=== PATIENT | male | born 1945 | race Caucasian/White ===

== ENCOUNTER → 2023-04-27 10:13 | Outpatient (REF) | payer MEDICARE, OTHER, SELFPAY ==
[2023-04-27 11:06] LABS: % Basophils 0.5 % (0-2); % Eosinophils 0.5 % (0-6); % Immature Granulocytes 0.3 % (0-0.5); % Monocytes 7.9 % (1.7-9.3); % Neutrophils 66.8 % (42.2-75.2); Absolute Lymphocytes 1.9 10^3/uL (1.2-3.4); Absolute Monocytes 0.6 10^3/uL (0.1-0.6); Absolute Neutrophils 5.3 10^3/uL (1.4-6.5); Hematocrit 43.7 % (39.0-52.0); Hemoglobin 15.1 g/dL (13.0-18.0); Mean Corp Hgb Conc. 34.6 g/dL (33.0-37.0); Mean Corpuscular Hgb 30.6 pg (27.0-31.0); Mean Corpuscular Volume 88.6 fL (80.0-94.0); Mean Platelet Volume 10.8 fL (7.4-10.4); Nucleated Red Blood Cells % 0 % (-); Platelet Count 210 10^3/uL (130-400); Red Blood Cell Count 4.93 10^6/uL (4.70-6.10); Red Cell Dist. Width 11.9 % (11.5-14.5); White Blood Cell Count 7.9 10^3/uL (4.8-10.8)
[2023-04-27 11:30] LABS: ALT (SGPT) 24 U/L (0-50); AST (SGOT) 27 U/L (17-59); Albumin 3.9 g/dl (3.5-5.0); Alkaline Phosphatase 57 U/L (38-126); Blood Urea Nitrogen 31 mg/dl (9-20); Calcium 9.6 mg/dl (8.4-10.2); Carbon Dioxide 31 mmol/L (22-30); Chloride 99 mmol/L (98-107); Glucose 88 mg/dl (70-99); Potassium 4.7 mmol/L (3.5-5.1); Sodium 139 mmol/L (135-145); Total Bilirubin 0.8 mg/dl (0.2-1.3); Total Protein 6.5 g/dl (6.3-8.2); eGFR 47.36
[2023-04-27 11:57] LABS: TSH Reflex To Free T4 0.98 uIU/ml (0.47-4.68)
== END ==
LOC: REG 10:13
PROVIDERS: ATTENDING PHYSICIAN Internal Medicine Hematology & Oncology; FAMILY PHYSICIAN Family Medicine
DX: C64.2 Malignant neoplasm of left kidney, except renal pelvis (principal); C61 Malignant neoplasm of prostate; Q85.00 Neurofibromatosis, unspecified; I10 Essential (primary) hypertension
CPT/HCPCS: 36415; 80053; 84443; 85025; 87324; 87449

== ENCOUNTER → 2023-04-28 15:23 | Outpatient (REF) | payer MEDICARE, OTHER, SELFPAY ==
[2023-04-28 16:27] LABS: PSA, Total - Diagnostic < 0.06 ng/ml (0.0-4.0)
== END ==
LOC: OIDL 15:23
PROVIDERS: ATTENDING PHYSICIAN Internal Medicine Hematology & Oncology
DX: C64.2 Malignant neoplasm of left kidney, except renal pelvis (principal); C61 Malignant neoplasm of prostate
CPT/HCPCS: 84153

== ENCOUNTER → 2023-05-18 10:31 | Outpatient (REF) | payer MEDICARE, OTHER, SELFPAY ==
[2023-05-18 11:12] LABS: % Basophils 0.8 % (0-2); % Eosinophils 1.3 % (0-6); % Immature Granulocytes 0.3 % (0-0.5); % Lymphocytes 27.2 % (20.5-51.1); % Monocytes 7.7 % (1.7-9.3); % Neutrophils 62.7 % (42.2-75.2); Absolute Basophils 0.1 10^3/uL (0-0.2); Absolute Eosinophils 0.1 10^3/uL (0-0.7); Absolute Lymphocytes 2.1 10^3/uL (1.2-3.4); Absolute Monocytes 0.6 10^3/uL (0.1-0.6); Absolute Neutrophils 4.8 10^3/uL (1.4-6.5); Hematocrit 43.4 % (39.0-52.0); Mean Corp Hgb Conc. 34.6 g/dL (33.0-37.0); Mean Corpuscular Volume 89.7 fL (80.0-94.0); Mean Platelet Volume 10.5 fL (7.4-10.4); Nucleated Red Blood Cells % 0 % (-); Platelet Count 225 10^3/uL (130-400); Red Blood Cell Count 4.84 10^6/uL (4.70-6.10); Red Cell Dist. Width 12.4 % (11.5-14.5); White Blood Cell Count 7.7 10^3/uL (4.8-10.8)
[2023-05-18 12:09] LABS: ALT (SGPT) 37 U/L (0-50); AST (SGOT) 32 U/L (17-59); Albumin 4.3 g/dl (3.5-5.0); Alkaline Phosphatase 63 U/L (38-126); Blood Urea Nitrogen 28 mg/dl (9-20); Calcium 9.3 mg/dl (8.4-10.2); Carbon Dioxide 28 mmol/L (22-30); Chloride 103 mmol/L (98-107); Glucose 101 mg/dl (70-99); Potassium 4.3 mmol/L (3.5-5.1); Sodium 138 mmol/L (135-145); Total Protein 7.2 g/dl (6.3-8.2); eGFR 47.06
[2023-05-18 12:29] LABS: TSH Reflex To Free T4 1.26 uIU/ml (0.47-4.68)
[2023-05-18 12:48] LABS: Vitamin B12 613 pg/ml (239-931)
== END ==
LOC: REG 10:31
PROVIDERS: Psychiatry & Neurology Behavioral Neurology & Neuropsychiatry; ATTENDING PHYSICIAN Internal Medicine Hematology & Oncology; FAMILY PHYSICIAN Family Medicine
DX: C64.2 Malignant neoplasm of left kidney, except renal pelvis (principal); C61 Malignant neoplasm of prostate; Q85.00 Neurofibromatosis, unspecified; G30.9 Alzheimer's disease, unspecified; I48.0 Paroxysmal atrial fibrillation
CPT/HCPCS: 36415; 80053; 82607; 84443; 85025

== ENCOUNTER → 2023-06-03 06:34 | Outpatient (REF) | payer MEDICARE, OTHER, SELFPAY | LOC: MRI 3T 06:34 | PROVIDERS: ATTENDING PHYSICIAN Psychiatry & Neurology Behavioral Neurology & Neuropsychiatry; FAMILY PHYSICIAN Family Medicine | DX: G30.9 Alzheimer's disease, unspecified (principal) | CPT/HCPCS: 70551 ==

== ENCOUNTER → 2023-06-08 09:38 | Outpatient (REF) | payer MEDICARE, OTHER, SELFPAY ==
[2023-06-08 11:13] LABS: % Basophils 0.5 % (0-2); % Eosinophils 1.5 % (0-6); % Immature Granulocytes 0.4 % (0-0.5); % Lymphocytes 26.5 % (20.5-51.1); % Monocytes 8.4 % (1.7-9.3); % Neutrophils 62.7 % (42.2-75.2); Absolute Eosinophils 0.1 10^3/uL (0-0.7); Absolute Monocytes 0.6 10^3/uL (0.1-0.6); Absolute Neutrophils 4.6 10^3/uL (1.4-6.5); Hematocrit 43.1 % (39.0-52.0); Hemoglobin 14.9 g/dL (13.0-18.0); Mean Corp Hgb Conc. 34.6 g/dL (33.0-37.0); Mean Corpuscular Volume 89.8 fL (80.0-94.0); Mean Platelet Volume 10.6 fL (7.4-10.4); Nucleated Red Blood Cells % 0 % (-); Platelet Count 213 10^3/uL (130-400); Red Cell Dist. Width 12.7 % (11.5-14.5); White Blood Cell Count 7.4 10^3/uL (4.8-10.8)
[2023-06-08 11:31] LABS: ALT (SGPT) 29 U/L (0-50); AST (SGOT) 27 U/L (17-59); Albumin 4.2 g/dl (3.5-5.0); Alkaline Phosphatase 66 U/L (38-126); Blood Urea Nitrogen 29 mg/dl (9-20); Calcium 9.6 mg/dl (8.4-10.2); Carbon Dioxide 29 mmol/L (22-30); Chloride 102 mmol/L (98-107); Glucose 84 mg/dl (70-99); Potassium 4.3 mmol/L (3.5-5.1); Sodium 138 mmol/L (135-145); Total Bilirubin 0.8 mg/dl (0.2-1.3); Total Protein 6.9 g/dl (6.3-8.2); eGFR 47.06
[2023-06-08 12:01] LABS: TSH Reflex To Free T4 1.33 uIU/ml (0.47-4.68)
== END ==
LOC: REG 09:38
PROVIDERS: ATTENDING PHYSICIAN Internal Medicine Hematology & Oncology; FAMILY PHYSICIAN Family Medicine
DX: C64.2 Malignant neoplasm of left kidney, except renal pelvis (principal); C61 Malignant neoplasm of prostate; Q85.00 Neurofibromatosis, unspecified; I10 Essential (primary) hypertension
CPT/HCPCS: 36415; 80053; 84443; 85025

== ENCOUNTER → 2023-06-29 09:40 | Outpatient (REF) | payer MEDICARE, OTHER, SELFPAY ==
[2023-06-29 10:21] LABS: % Basophils 0.6 % (0-2); % Immature Granulocytes 0.3 % (0-0.5); % Lymphocytes 27.4 % (20.5-51.1); % Monocytes 8.9 % (1.7-9.3); % Neutrophils 61.8 % (42.2-75.2); Absolute Eosinophils 0.1 10^3/uL (0-0.7); Absolute Lymphocytes 1.9 10^3/uL (1.2-3.4); Absolute Monocytes 0.6 10^3/uL (0.1-0.6); Absolute Neutrophils 4.3 10^3/uL (1.4-6.5); Hematocrit 40.6 % (39.0-52.0); Hemoglobin 13.5 g/dL (13.0-18.0); Mean Corp Hgb Conc. 33.3 g/dL (33.0-37.0); Mean Corpuscular Hgb 30.8 pg (27.0-31.0); Mean Corpuscular Volume 92.7 fL (80.0-94.0); Mean Platelet Volume 10.3 fL (7.4-10.4); Nucleated Red Blood Cells % 0 % (-); Platelet Count 199 10^3/uL (130-400); Red Blood Cell Count 4.38 10^6/uL (4.70-6.10); Red Cell Dist. Width 12.7 % (11.5-14.5)
[2023-06-29 14:15] LABS: ALT (SGPT) 31 U/L (0-50); AST (SGOT) 27 U/L (17-59); Alkaline Phosphatase 67 U/L (38-126); Blood Urea Nitrogen 30 mg/dl (9-20); Carbon Dioxide 27 mmol/L (22-30); Chloride 104 mmol/L (98-107); Glucose 86 mg/dl (70-99); Potassium 4.6 mmol/L (3.5-5.1); Sodium 137 mmol/L (135-145); Total Bilirubin 0.5 mg/dl (0.2-1.3); Total Protein 6.8 g/dl (6.3-8.2); eGFR 51.13
[2023-06-29 14:45] LABS: TSH Reflex To Free T4 1.21 uIU/ml (0.47-4.68)
== END ==
LOC: REG 09:40
PROVIDERS: ATTENDING PHYSICIAN Internal Medicine Hematology & Oncology; FAMILY PHYSICIAN Family Medicine
DX: C64.2 Malignant neoplasm of left kidney, except renal pelvis (principal); C61 Malignant neoplasm of prostate; Q85.00 Neurofibromatosis, unspecified; I10 Essential (primary) hypertension
CPT/HCPCS: 36415; 80053; 84443; 85025

== ENCOUNTER 2023-06-30 16:12 | Outpatient (RCR) | payer MEDICARE, OTHER, SELFPAY ==
[2023-06-30 15:23] LABS: PSA, Total - Diagnostic < 0.06 ng/ml (0.0-4.0)
== END 2023-07-07 23:59 | disposition home or self-care (01) ==
LOC: OID 16:12
PROVIDERS: ATTENDING PHYSICIAN Internal Medicine Hematology & Oncology
DX: C64.2 Malignant neoplasm of left kidney, except renal pelvis (principal); C61 Malignant neoplasm of prostate; Z79.01 Long term (current) use of anticoagulants
CPT/HCPCS: 84153

== ENCOUNTER 2023-07-14 07:11 | Day surgery (SDC) | payer MEDICARE, OTHER, SELFPAY ==
--- NOTE | 2023-07-14 11:21 | WATCHMAN ---
Watchman
Wathcman Procedure
Referred by:: Ariane
Date of Referral:: 07/07/23
[id number] Score
Age in Years (65=0, 65-74=1, >/=75=2): > or = 75
Sex (Female=+1): Male
Congestive Heart Failure History (Yes=+1): No
Hypertension History (Yes=+1): Yes
Stroke/TIA/Thromboembolism History (Yes=+2): Yes
Vascular Disease History (Yes=+1): No
Diabetes Mellitus (Yes=+1): No
Score: 5
Anticoagulation Recommendations: Recommend anticoagulation (as validated in nonvalvular fib)
HASBLED Score
Hypertenstion (uncontrolled >160mmHG systolic): Yes
Renal disease (dialysis, transplant, Cr >2.26mg/dL or >200umol/L): No
Liver disease (cirrhosis or bilirubin >2x normal w/ AST/ALT/AP >3x normal: No
Stroke history: Yes
Prior major bleeding or predisposition to bleeding: No
Labile INR(unsable/high INRs,time in therapeutic range <60%): No
Age >65: Yes
Medication usage predisposing to bleeding(ASA, NSAIDS): Yes
Alcohol use (>/= 8 drinks/week): No
Score: 4
Risk: Alternatives to anticoagulation should be considered: Patient is at high risk for major bleeding
Physician Visits
Mill Tender Warm Up:: Ariane
Date of Visit:: 07/07/23
Primary Brim Stitcher:: Catracho
PCP:: Deejay Rodriguez
Plan
Plan:: 07/07/2023: Consult receive from Dr. Thakkar. BART ordered to evaluate appendage.
07/14/2023: BART performed by Dr. Earl.
== END 2023-07-14 09:48 | disposition home or self-care (01) ==
LOC: CATH 07:11
PROVIDERS: ATTENDING PHYSICIAN Nuclear Medicine Nuclear Cardiology; FAMILY PHYSICIAN Family Medicine
DX: I48.0 Paroxysmal atrial fibrillation (principal); I70.0 Atherosclerosis of aorta; I10 Essential (primary) hypertension; Z79.01 Long term (current) use of anticoagulants; I08.1 Rheumatic disorders of both mitral and tricuspid valves
CPT/HCPCS: 93312; 93320; 93325

== ENCOUNTER → 2023-07-20 10:36 | Outpatient (REF) | payer MEDICARE, OTHER, SELFPAY ==
[2023-07-20 11:35] LABS: % Basophils 0.5 % (0-2); % Eosinophils 0.6 % (0-6); % Immature Granulocytes 0.3 % (0-0.5); % Lymphocytes 26.8 % (20.5-51.1); % Monocytes 8.1 % (1.7-9.3); % Neutrophils 63.7 % (42.2-75.2); Absolute Lymphocytes 1.7 10^3/uL (1.2-3.4); Absolute Monocytes 0.5 10^3/uL (0.1-0.6); Absolute Neutrophils 4.1 10^3/uL (1.4-6.5); Hematocrit 40.8 % (39.0-52.0); Hemoglobin 13.9 g/dL (13.0-18.0); Mean Corp Hgb Conc. 34.1 g/dL (33.0-37.0); Mean Corpuscular Hgb 31.1 pg (27.0-31.0); Mean Corpuscular Volume 91.3 fL (80.0-94.0); Mean Platelet Volume 10.2 fL (7.4-10.4); Nucleated Red Blood Cells % 0 % (-); Platelet Count 218 10^3/uL (130-400); Red Blood Cell Count 4.47 10^6/uL (4.70-6.10); Red Cell Dist. Width 11.9 % (11.5-14.5); White Blood Cell Count 6.4 10^3/uL (4.8-10.8)
[2023-07-20 13:00] LABS: ALT (SGPT) 25 U/L (0-50); AST (SGOT) 26 U/L (17-59); Albumin 3.7 g/dl (3.5-5.0); Alkaline Phosphatase 72 U/L (38-126); Blood Urea Nitrogen 24 mg/dl (9-20); Calcium 9.5 mg/dl (8.4-10.2); Carbon Dioxide 27 mmol/L (22-30); Chloride 102 mmol/L (98-107); Glucose 119 mg/dl (70-99); Potassium 4.3 mmol/L (3.5-5.1); Sodium 139 mmol/L (135-145); Total Bilirubin 0.5 mg/dl (0.2-1.3); Total Protein 6.5 g/dl (6.3-8.2); eGFR 55.88
[2023-07-20 13:25] LABS: TSH 1.16 uIU/ml (0.47-4.68)
== END ==
LOC: REG 10:36
PROVIDERS: ATTENDING PHYSICIAN Internal Medicine Hematology & Oncology; FAMILY PHYSICIAN Family Medicine
DX: C64.2 Malignant neoplasm of left kidney, except renal pelvis (principal); C61 Malignant neoplasm of prostate; Q85.00 Neurofibromatosis, unspecified; I10 Essential (primary) hypertension
CPT/HCPCS: 36415; 80053; 84443; 85025

== ENCOUNTER 2023-08-11 07:56 | Inpatient (IN) | payer MEDICARE, OTHER, SELFPAY ==
[2023-08-04 08:20] VITALS: BMI 20.9
[2023-08-04 08:39] LABS: % Basophils 0.6 % (0-2); % Eosinophils 1.5 % (0-6); % Immature Granulocytes 0.3 % (0-0.5); % Lymphocytes 35.8 % (20.5-51.1); % Monocytes 7.4 % (1.7-9.3); % Neutrophils 54.4 % (42.2-75.2); Absolute Basophils 0.1 10^3/uL (0-0.2); Absolute Eosinophils 0.1 10^3/uL (0-0.7); Absolute Lymphocytes 2.8 10^3/uL (1.2-3.4); Absolute Monocytes 0.6 10^3/uL (0.1-0.6); Absolute Neutrophils 4.3 10^3/uL (1.4-6.5); Hematocrit 39.3 % (39.0-52.0); Hemoglobin 13.1 g/dL (13.0-18.0); Mean Corp Hgb Conc. 33.3 g/dL (33.0-37.0); Mean Corpuscular Hgb 30.8 pg (27.0-31.0); Mean Corpuscular Volume 92.3 fL (80.0-94.0); Mean Platelet Volume 10.1 fL (7.4-10.4); Nucleated Red Blood Cells % 0 % (-); Platelet Count 205 10^3/uL (130-400); Red Blood Cell Count 4.26 10^6/uL (4.70-6.10); Red Cell Dist. Width 12.2 % (11.5-14.5); White Blood Cell Count 7.9 10^3/uL (4.8-10.8)
[2023-08-04 08:49] LABS: INR 1.52; PT 18.1 Sec (11.4-14.6)
[2023-08-04 09:36] LABS: ALT (SGPT) 30 U/L (0-50); AST (SGOT) 29 U/L (17-59); Albumin 3.8 g/dl (3.5-5.0); Alkaline Phosphatase 78 U/L (38-126); Blood Urea Nitrogen 25 mg/dl (9-20); Calcium 9.1 mg/dl (8.4-10.2); Carbon Dioxide 24 mmol/L (22-30); Chloride 106 mmol/L (98-107); Estimated Creatinine Clearance 47 ml/min; Glucose 108 mg/dl (70-99); Potassium 3.8 mmol/L (3.5-5.1); Sodium 139 mmol/L (135-145); Total Bilirubin 0.7 mg/dl (0.2-1.3); Total Protein 6.5 g/dl (6.3-8.2); eGFR > 60.00
[2023-08-11] VITALS (9 sets, daily range): BP systolic 108–129; BP diastolic 67–94; BMI 20.2
--- NOTE | 2023-08-11 10:49 | WATCHMAN.MD ---
Watchman Implant
-
ELECTROPHYSIOLOGY/INTERVENTIONAL PROCEDURE REPORT
Date of Procedure: August 11, 2023
Referring: Dr. Valente Earl
Assisting Physician:Dr. Phylicia Alva
PROCEDURES:
1. Left atrial appendage occlusion device using 27 mm WATCHMAN FLX device
2. Intracardiac echocardiography
3. Ultrasound-guided right common femoral venous access
INDICATION: Known paroxysmal atrial fibrillation with indication for long-term anticoagulation to decrease stroke risk. Contraindication to long-term oral anticoagulant in the setting of new Alzheimer's medication initiation.
ACCESS: Right common femoral vein, 16Fr sheath and 9Fr. sheaths, under US guidance using micropunture kit.
HEMODYNAMICS : (mmHg)
RA Pressure : 5
LA Pressure: 8
PROCEDURE REPORT:
After informed consent and patient safety 'Timeout' the patient was intubated and sedated by the anesthesiology service. Under ultrasound guidance, the right femoral vein was accessed by Dr. Phylicia Alva twice for transseptal puncture and
intracardiac ultrasound, respectively. Concomitant transesophageal echocardiogram was performed by Dr. Sp Boudreaux
Baseline intracardiac ultrasound demonstrated no pericardial effusion and baseline BART images revealed a trace pericardial effusion.
After ruling out a left atrial appendage thrombus, the patient was heparinized for an ACT between 350-400 seconds and under BART and intracardiac ultrasound guidance transseptal puncture was performed by Dr. Phylicia Alva using a AcuQcross in a mid
position on the inferior-superior axis and a mid position on the anterior-posterior axis. Right atrial pressure was 5 millimeters mercury and left atrial pressure was 8 millimeters mercury.
Once transseptal puncture was performed over an Amplatz Super Stiff 0.035 wire parked in the left superior pulmonary vein, the watchman access double curve sheath was brought into body of left atrium. A 5 Telugu pigtail catheter was placed into the
left atrial appendage and an appendage gram was performed using intravenous contrast dye demonstrating a chicken wing type anatomy that was suitable likely for a 27 mm WATCHMAN FLX device.
After appropriately prepping the device, Dr. Heidi Thakkar successfully deployed a 27 mm WATCHMAN FLX device. Device showed excellent positioning with no leaks post device deployment. 22 to 29 % compression was noted in the device after deployment.
A 'tug-test' was performed demonstrating stability of the device. Given PASS criteria were met, the device was then released successfully by Dr. Heidi Thakkar.
Post procedure, BART imaging demonstrated no new or worse pericardial effusion. Sheaths and catheters were removed from the left atrium and heparin was reversed using protamine. Catheters removed from the femoral veins with [id number] suture
applied. The patient tolerated the procedure well.
RADIATION SUMMARY: Fluoro Time (min): 6.5, Dose (mGy): 22.7, DAP (Gy.cm2) : 2.7
Closure Device: Figure of 8 suture
CONCLUSIONS
1. Successful deployment of 27 mm WATCHMAN FLX device under BART and ICE guidance.
RECOMMENDATIONS
1. Plan for daily Eliquis 5 mg twice daily along with daily baby aspirin 81 mg for the next 6 weeks.
2. 45-day BART post procedure to assess stability of device and rule out any shira-device leaks. If no issues, plan to discontinue eliquis at that point and start plavix 75mg daily (after 300mg loading dose) along with continued aspirin
3. Figure of 8 suture removal prior to discharge.
Heidi Thakkar MD, [facility], [facility]
[2023-08-11 11:43] LABS: ACT-LR - POC 326 Seconds (116-155)
--- NOTE | 2023-08-11 15:34 | W.DS.TRANS ---
DC Summary - Faculty Research Physician
-
Discharge Instructions:
Discharge Diagnosis/Procedures Afib post Watchman
Diet Low Cholesterol
Driving Restrictions No driving for 24 hours
Others Tests Follow up BART is scheduled at [facility] on 09/24/2023. You will receive a call
with instructions and date for pre-admission
testing.
Instructions:
Stand-Alone Forms: DC Instructions- Cath/EP Lab
Changes to Home Medications: Yes
Discharge Medications:
DC Medications w/original date entered in [employer]
apixaban 5 mg tablet (Eliquis) 5 mg PO BID Blood Clot Prevention/Tx 04/17/22
cholecalciferol (vitamin D3) 50 mcg (2,000 unit) capsule (Vitamin D3) 50 mcg PO DAILY Supplement 04/17/22
metoprolol succinate 50 mg tablet,extended release 24 hr 50 mg PO DAILY Blood Pressure 04/17/22
ascorbic acid (vitamin C) 1,000 mg tablet (Vitamin C) 1 g PO DAILY Supplement 10/06/22
pembrolizumab 25 mg/mL intravenous solution (Keytruda) 200 mg IV Q3W 07/30/23
aspirin 81 mg chewable tablet 81 mg PO DAILY #1 tab 08/11/23
Home Medication Changes
new to asa 81mg
Pending Results: No
--- NOTE | 2023-08-11 15:34 | W.PN.UPDATE ---
Update Note
Progress Note Update
78 yo WM s/p Watchman device implant (same day) He feels good, no cp, sob, demetrius diet, voiding, R fem site c/d/i no HT, EKG Afib. He will continue OAC Eliquis dose tonight at 6pm. He will add ASA 81mg until after f/u BART in 6 weeks. Activity
restrictions reviewed. He is for d/c home after 430p if groin remains stable.
PROCEDURES:
1. Left atrial appendage occlusion device using 27 mm WATCHMAN FLX device
2. Intracardiac echocardiography
3. Ultrasound-guided right common femoral venous access
INDICATION: Known paroxysmal atrial fibrillation with indication for long-term anticoagulation to decrease stroke risk. Contraindication to long-term oral anticoagulant in the setting of new Alzheimer's medication initiation.
--- NOTE | 2023-08-11 16:32 | ITS.CL.PN ---
Neurology Physician Assistant - Procedure Note
Procedure
Procedure Note:
Watchman CORBY occlusion device implantation:
Date of Procedure:
08/11/23
Indications:
Recurrent bleeding with anticoagulation therapy for stroke prevention
Pre-Operative Diagnosis:
Atrial fibrillation with recurrent bleeding
Post-Operative Diagnosis:
Atrial fibrillation with recurrent bleeding
Procedure Performed:
Left atrial appendage occlusion with Watchman implantation (27 mm FLX Watchman left atrial appendage closure device)
Performing Physicians:
BART: Jignesh Boudreaux M.D.
Transseptal rotary dump operator: Phylicia shook M.D
Implanter: Heidi Thakkar M.D.
Anesthesia:
See anesthesia records
Detailed Description of the Procedure:
Written informed consent was obtained from the patient after a full explanation of the risks and benefits of the procedure including the risks of sedation and anesthesia.
The patient was brought to the electrophysiology laboratory in stable condition in fasting state. Continuous electrocardiographic and hemodynamic monitoring was initiated.
The initial rhythm was normal sinus rhythm.
The procedure site was meticulously prepared with surgical scrub and allowed to dry with no pooling. Sterile draping was applied to cover the procedure site. The image intensifier was draped with sterile bag and positioned over the patient. After
infusion of local anesthetic, vascular access was obtained under ultrasound guidance and sheaths were placed over guide wire as detailed below.
Sheath and Catheter Placement:
In the right femoral vein, a 16-Spanish sheath was placed for Watchman placement procedure.
Sheaths:
��������������� 9Fr with ICE
��������������� Watchman delivery sheath with Watchman catheter
Intra cardiac ECHO (ICE):
Using AccuNav ICE catheter, ECHO of the cardiac chambers were done that provided the anatomy and a baseline ECHO study was performed. The left atrial size was enlarged. There was trace tricuspid regurgitation. The aortic valve was grossly normal.
There was normal left ventricular size and function. There was no pericardial effusion.
During the procedure, ICE and BART was used for monitoring of complications, guidance of trans-septal puncture, monitor the catheter position and tracking watchman implantation and level of compression.
No change in the pericardial space noted throughout the procedure.
Trans-septal Puncture:
Heparin was initiated and infused to maintain appropriate ACT.
A J-tipped guidewire was advanced through the 8-Spanish sheath in the right femoral vein into the superior vena cava under fluoroscopic, ICE and BART guidance. The 8Fr was upgraded to 16 Fr sheath. The Watchman sheath was advanced into the superior
vena cava over the guide wire. The ACDynamics Expert� AcQCross Qx trans-septal apparatus was used through the Watchman sheath. The apparatus was withdrawn until it was in contact with the fossa ovalis. The position was adjusted based on fluoroscopy and
ultrasound images from ICE. Under fluoroscopic, hemodynamic and ICE/BART ultrasound guidance, left atrium was cannulated by advancing the needle. The right atrial and left atrial pressure was monitored through the needle. An Amplatz guide wire was
placed and was advanced into the left superior pulmonary vein. Both the sheath and the dilator was advanced into the left atrium. The dilator with the needle was withdrawn. Blood was aspirated from the sheath and arterial blood confirmed. The sheath
was flushed. Saline injection noted into the left atrium on BART. The LA pressure was recorded. The Agilis sheath was removed keeping the wire in place. The Watchman delivery sheath was placed over the Amplatz wire into the LA using a dilator. The
dilator and was removed and the sheath was flushed. The saline injection was noted in the LA on the BART and ICE. A curved pig tail was advanced over the guide wire into the left atrium and the wire was removed.
Left atrial appendage atriography:
The pigtail was advanced into the CORBY and was confirmed on fluoroscopy and BART. The contrast was injected and the CORBY shape was recorded in SÁNCHEZ /Caudal view (20/20 degrees). The size of the CORBY was again checked and confirmed reviewing the BART and
the fluoroscopy along with previously obtained CT scan images.
Watchman Deployment:
The Watchman delivery sheath was advanced into the CORBY over the pigtail till the right marker was at the location of the orifice line marked on the screen. The pigtail was removed and the Watchman delivery system was advanced through the sheath into
the CORBY till it was aligned with the outer sheath marker inside the CORBY. The watchman sheath was clicked with the outer sheath. Once acceptable location achieved, the outer sheath was pulled back keeping the device steady at the CORBY location till a
ball of the device was formed under fluoroscopic guidance. The whole system was advanced further into the CORBY till adequate depth is achieved into the CORBY.� The CORBY occluder was deployed and expanded adequately anchoring to the CORBY. The device was
kept anchored with stable pressure to that location for 10 seconds.
The BART and ICE showed the device is not appropriately compressed. The Watchman was recaptured and deployed deeper into the CORBY. The device was captured and redeployed with excellent results.
The BART image confirmed adequate expansion. The tug test was done that showed the device is anchored well and is not able to come out. The compression was 22% and 18% on the two sides. There was no significant leak noted on the Doppler via BART.
The device was deployed by unscrewing the Watchman device and releasing from the connecting wire. The wire was pulled back into the sheath and the sheath was pulled out of the LA.
Implanted device:
WATCHMAN FLX � 27mm
Procedure End
BART study was done again that showed no epicardial accumulation that was unchanged from earlier. A repeated images showed no change in the pericardial space. No complications noted.
Following the completion of the deployment, catheters were removed. Protamine 40 mg was given at the end of the procedure and ACT was checked repeatedly. The sheath was removed and hemostasis achieved with �Figure of 8� and manual compression after
acceptable ACT is achieved.
Left atrial Pressure:
Mean LA pressure was 8mmHg
Mean RA pressure 5 mmHg
Estimated Blood loss:
5 cc
Specimens Removed:
None.
Implants / Devices:
None
Urine output:
None
Packs / Drains/ Tubes:
None
Instrument / Sponge Count Correct:
Yes
Complications of the Procedure:
None
Condition of Patient at Time of Transfer:
Hemodynamically stable with no neurological or vascular compromise.
Summary:
Successful implantation of the left atrial occlusion device (WATCHMAN FLX � 27mm)
Post procedure Plan for anticoagulation:
Continue Eliquis 5 mg BID and ASA 81 mg QD for 6 weeks.
Based on 6 weeks BART, will plan to switch Eliquis to Plavix and ASA.
In six months, will plan to discontinue Plavix and continue ASA 81 mg indefinitely.
== END 2023-08-11 16:30 | disposition home or self-care (01) | DRG 274 ==
LOC: CATH-IN 07:56
PROVIDERS: Internal Medicine Cardiovascular Disease; ADMITTING PHYSICIAN Internal Medicine Interventional Cardiology; FAMILY PHYSICIAN Family Medicine
PROC: B24BZZ4 Ultrasonography of Heart with Aorta, Transesophageal (ICD-10-PCS; 2023-08-11)
PROC: 02L73DK Occlusion of Left Atrial Appendage with Intraluminal Device, Percutaneous Approach (ICD-10-PCS; 2023-08-11)
PROC: B24BYZZ Ultrasonography of Heart with Aorta using Other Contrast (ICD-10-PCS; 2023-08-11)
DX: I48.19 Other persistent atrial fibrillation (principal); Z00.6 Encounter for examination for normal comparison and control in clinical research program; F02.80 Dementia in other diseases classified elsewhere, unspecified severity, without behavioral disturbance, psychotic disturbance, mood disturbance, and anxiety; G30.9 Alzheimer's disease, unspecified; I10 Essential (primary) hypertension; I77.810 Thoracic aortic ectasia; I49.1 Atrial premature depolarization; K76.89 Other specified diseases of liver; I34.0 Nonrheumatic mitral (valve) insufficiency; Z86.010 Personal history of colon polyps; Z87.19 Personal history of other diseases of the digestive system; Z86.73 Personal history of transient ischemic attack (TIA), and cerebral infarction without residual deficits; Q85.00 Neurofibromatosis, unspecified; Z85.528 Personal history of other malignant neoplasm of kidney; Z90.5 Acquired absence of kidney; Z85.46 Personal history of malignant neoplasm of prostate; Z90.79 Acquired absence of other genital organ(s); Z85.828 Personal history of other malignant neoplasm of skin; Z22.322 Carrier or suspected carrier of Methicillin resistant Staphylococcus aureus; Z79.01 Long term (current) use of anticoagulants
CPT/HCPCS: 33340; 36415; 76937; 80053; 85025; 85347; 85610; 86850; 86900; 86901; 87070; 87147; 93005; 93355; C1759; C1892; Q9967

== ENCOUNTER → 2023-09-24 07:13 | Day surgery (SDC) | payer MEDICARE, OTHER, SELFPAY | LOC: CATH 07:13 | PROVIDERS: ATTENDING PHYSICIAN Internal Medicine Cardiovascular Disease; FAMILY PHYSICIAN Family Medicine; OTHER PHYSICIAN Nuclear Medicine Nuclear Cardiology | DX: Z45.09 Encounter for adjustment and management of other cardiac device (principal); I08.1 Rheumatic disorders of both mitral and tricuspid valves; I48.19 Other persistent atrial fibrillation; I10 Essential (primary) hypertension; Z86.73 Personal history of transient ischemic attack (TIA), and cerebral infarction without residual deficits; Z85.46 Personal history of malignant neoplasm of prostate; Z85.828 Personal history of other malignant neoplasm of skin; Z85.528 Personal history of other malignant neoplasm of kidney; Z79.01 Long term (current) use of anticoagulants | CPT/HCPCS: 93312; 93320; 93325 ==

== ENCOUNTER → 2023-09-28 11:17 | Outpatient (REF) | payer MEDICARE, OTHER, SELFPAY ==
[2023-09-28 12:22] LABS: % Basophils 0.5 % (0-2); % Eosinophils 0.6 % (0-6); % Immature Granulocytes 0.1 % (0-0.5); % Lymphocytes 28.4 % (20.5-51.1); % Monocytes 6.1 % (1.7-9.3); % Neutrophils 64.3 % (42.2-75.2); Absolute Eosinophils 0.1 10^3/uL (0-0.7); Absolute Lymphocytes 2.3 10^3/uL (1.2-3.4); Absolute Monocytes 0.5 10^3/uL (0.1-0.6); Absolute Neutrophils 5.2 10^3/uL (1.4-6.5); Hemoglobin 13.1 g/dL (13.0-18.0); Mean Corp Hgb Conc. 33.6 g/dL (33.0-37.0); Mean Corpuscular Hgb 30.7 pg (27.0-31.0); Mean Corpuscular Volume 91.3 fL (80.0-94.0); Mean Platelet Volume 10.1 fL (7.4-10.4); Nucleated Red Blood Cells % 0 % (-); Platelet Count 206 10^3/uL (130-400); Red Blood Cell Count 4.27 10^6/uL (4.70-6.10); Red Cell Dist. Width 12.8 % (11.5-14.5); White Blood Cell Count 8.1 10^3/uL (4.8-10.8)
[2023-09-28 12:52] LABS: ALT (SGPT) 27 U/L (0-50); AST (SGOT) 26 U/L (17-59); Albumin 3.9 g/dl (3.5-5.0); Alkaline Phosphatase 82 U/L (38-126); Blood Urea Nitrogen 26 mg/dl (9-20); Calcium 9.3 mg/dl (8.4-10.2); Carbon Dioxide 28 mmol/L (22-30); Chloride 105 mmol/L (98-107); Glucose 98 mg/dl (70-99); Potassium 4.8 mmol/L (3.5-5.1); Sodium 140 mmol/L (135-145); Total Bilirubin 0.5 mg/dl (0.2-1.3); Total Protein 6.6 g/dl (6.3-8.2); eGFR > 60.00
== END ==
LOC: REG 11:17
PROVIDERS: ATTENDING PHYSICIAN Internal Medicine Hematology & Oncology; FAMILY PHYSICIAN Family Medicine
DX: C64.2 Malignant neoplasm of left kidney, except renal pelvis (principal); C61 Malignant neoplasm of prostate; Q85.00 Neurofibromatosis, unspecified; I10 Essential (primary) hypertension
CPT/HCPCS: 36415; 80053; 84443; 85025

== ENCOUNTER → 2023-09-29 13:36 | Outpatient (REF) | payer MEDICARE, OTHER, SELFPAY ==
[2023-09-29 12:44] LABS: PSA, Total - Diagnostic < 0.06 ng/ml (0.0-4.0)
== END ==
LOC: OIDL 13:36
PROVIDERS: ATTENDING PHYSICIAN Internal Medicine Hematology & Oncology
DX: C64.2 Malignant neoplasm of left kidney, except renal pelvis (principal); C61 Malignant neoplasm of prostate
CPT/HCPCS: 84153

== ENCOUNTER → 2023-10-19 11:03 | Outpatient (REF) | payer MEDICARE, OTHER, SELFPAY ==
[2023-10-19 13:14] LABS: % Basophils 0.7 % (0-2); % Eosinophils 0.7 % (0-6); % Immature Granulocytes 0.2 % (0-0.5); % Lymphocytes 26.1 % (20.5-51.1); % Monocytes 6.3 % (1.7-9.3); Absolute Basophils 0.1 10^3/uL (0-0.2); Absolute Eosinophils 0.1 10^3/uL (0-0.7); Absolute Lymphocytes 2.2 10^3/uL (1.2-3.4); Absolute Monocytes 0.5 10^3/uL (0.1-0.6); Absolute Neutrophils 5.6 10^3/uL (1.4-6.5); Hemoglobin 13.1 g/dL (13.0-18.0); Mean Corp Hgb Conc. 33.6 g/dL (33.0-37.0); Mean Corpuscular Volume 89.4 fL (80.0-94.0); Mean Platelet Volume 10.3 fL (7.4-10.4); Nucleated Red Blood Cells % 0 % (-); Platelet Count 230 10^3/uL (130-400); Red Blood Cell Count 4.36 10^6/uL (4.70-6.10); Red Cell Dist. Width 12.8 % (11.5-14.5); White Blood Cell Count 8.4 10^3/uL (4.8-10.8)
[2023-10-19 13:43] LABS: ALT (SGPT) 56 U/L (0-50); AST (SGOT) 43 U/L (17-59); Albumin 4.3 g/dl (3.5-5.0); Alkaline Phosphatase 100 U/L (38-126); Blood Urea Nitrogen 26 mg/dl (9-20); Calcium 9.7 mg/dl (8.4-10.2); Carbon Dioxide 29 mmol/L (22-30); Chloride 104 mmol/L (98-107); Glucose 94 mg/dl (70-99); Potassium 4.5 mmol/L (3.5-5.1); Sodium 139 mmol/L (135-145); Total Bilirubin 0.6 mg/dl (0.2-1.3); Total Protein 6.8 g/dl (6.3-8.2); eGFR 55.88
[2023-10-19 14:07] LABS: TSH Reflex To Free T4 1.29 uIU/ml (0.47-4.68)
== END ==
LOC: REG 11:03
PROVIDERS: ATTENDING PHYSICIAN Internal Medicine Hematology & Oncology; FAMILY PHYSICIAN Family Medicine
DX: C64.2 Malignant neoplasm of left kidney, except renal pelvis (principal); C61 Malignant neoplasm of prostate; Q85.00 Neurofibromatosis, unspecified; R94.6 Abnormal results of thyroid function studies
CPT/HCPCS: 36415; 80053; 84443; 85025

== ENCOUNTER → 2023-10-27 10:57 | Outpatient (REF) | payer MEDICARE, OTHER, SELFPAY | LOC: HWRAD 10:57 | PROVIDERS: ATTENDING PHYSICIAN Internal Medicine Hematology & Oncology; FAMILY PHYSICIAN Family Medicine; REFERRING PHYSICIAN Surgery | DX: C64.2 Malignant neoplasm of left kidney, except renal pelvis (principal); C61 Malignant neoplasm of prostate; Q85.00 Neurofibromatosis, unspecified | CPT/HCPCS: 71270; 74178; Q9967 ==

== ENCOUNTER → 2023-11-06 11:39 | Outpatient (REF) | payer MEDICARE, OTHER, SELFPAY | LOC: REG 11:39 | PROVIDERS: ATTENDING PHYSICIAN Surgery; FAMILY PHYSICIAN Family Medicine | DX: C61 Malignant neoplasm of prostate (principal) | CPT/HCPCS: 36415; 84153 ==

== ENCOUNTER → 2024-02-09 10:55 | Outpatient (REF) | payer MEDICARE, OTHER, SELFPAY ==
[2024-02-09 12:05] LABS: % Basophils 0.4 % (0-2); % Eosinophils 0.3 % (0-6); % Immature Granulocytes 0.3 % (0-0.5); % Lymphocytes 19.9 % (20.5-51.1); % Neutrophils 74.1 % (42.2-75.2); Absolute Lymphocytes 1.4 10^3/uL (1.2-3.4); Absolute Monocytes 0.4 10^3/uL (0.1-0.6); Absolute Neutrophils 5.3 10^3/uL (1.4-6.5); Hematocrit 40.8 % (39.0-52.0); Hemoglobin 13.2 g/dL (13.0-18.0); Mean Corp Hgb Conc. 32.4 g/dL (33.0-37.0); Mean Corpuscular Hgb 30.5 pg (27.0-31.0); Mean Corpuscular Volume 94.2 fL (80.0-94.0); Mean Platelet Volume 10.1 fL (7.4-10.4); Nucleated Red Blood Cells % 0 % (-); Platelet Count 223 10^3/uL (130-400); Red Blood Cell Count 4.33 10^6/uL (4.70-6.10); Red Cell Dist. Width 12.8 % (11.5-14.5); White Blood Cell Count 7.2 10^3/uL (4.8-10.8)
[2024-02-09 12:29] LABS: ALT (SGPT) 31 U/L (0-50); AST (SGOT) 28 U/L (17-59); Albumin 4.1 g/dl (3.5-5.0); Alkaline Phosphatase 68 U/L (38-126); Blood Urea Nitrogen 27 mg/dl (9-20); Direct Bilirubin 0.2 mg/dl (0.0-0.4); Total Bilirubin 0.6 mg/dl (0.2-1.3)
[2024-02-09 13:01] LABS: PSA, Total - Diagnostic < 0.06 ng/ml (0.0-4.0)
== END ==
LOC: REG 10:55
PROVIDERS: ATTENDING PHYSICIAN Internal Medicine Hematology & Oncology; FAMILY PHYSICIAN Family Medicine
DX: C64.2 Malignant neoplasm of left kidney, except renal pelvis (principal); C61 Malignant neoplasm of prostate; Q85.00 Neurofibromatosis, unspecified; R63.4 Abnormal weight loss
CPT/HCPCS: 36415; 80076; 82565; 84153; 84520; 85025

== ENCOUNTER → 2024-02-10 08:36 | Outpatient (REF) | payer MEDICARE, OTHER, SELFPAY ==
[2024-02-10 11:39] LABS: HDL Cholesterol 46 mg/dl; LDL Cholesterol, Calculated 88 mg/dl; Total Cholesterol 148 mg/dl (50-199); Triglyceride 73 mg/dl (10-149); Very Low Density Lipoprotein 14 mg/dl (0-30)
== END ==
LOC: REG 08:36
PROVIDERS: ATTENDING PHYSICIAN Family Medicine
DX: E78.5 Hyperlipidemia, unspecified (principal)
CPT/HCPCS: 36415; 80061

== ENCOUNTER → 2024-04-06 10:37 | Outpatient (REF) | payer MEDICARE, OTHER, SELFPAY ==
[2024-04-06 11:19] LABS: % Basophils 0.5 % (0-2); % Eosinophils 1.1 % (0-6); % Immature Granulocytes 0.3 % (0-0.5); % Lymphocytes 22.6 % (20.5-51.1); % Neutrophils 68.5 % (42.2-75.2); Absolute Eosinophils 0.1 10^3/uL (0-0.7); Absolute Lymphocytes 1.7 10^3/uL (1.2-3.4); Absolute Monocytes 0.5 10^3/uL (0.1-0.6); Absolute Neutrophils 5.2 10^3/uL (1.4-6.5); Hematocrit 41.1 % (39.0-52.0); Hemoglobin 13.8 g/dL (13.0-18.0); Mean Corp Hgb Conc. 33.6 g/dL (33.0-37.0); Mean Corpuscular Hgb 31.2 pg (27.0-31.0); Mean Corpuscular Volume 92.8 fL (80.0-94.0); Mean Platelet Volume 10.2 fL (7.4-10.4); Nucleated Red Blood Cells % 0 % (-); Platelet Count 188 10^3/uL (130-400); Red Blood Cell Count 4.43 10^6/uL (4.70-6.10); Red Cell Dist. Width 12.6 % (11.5-14.5); White Blood Cell Count 7.6 10^3/uL (4.8-10.8)
[2024-04-06 12:03] LABS: ALT (SGPT) 36 U/L (0-50); AST (SGOT) 32 U/L (17-59); Albumin 4.3 g/dl (3.5-5.0); Alkaline Phosphatase 67 U/L (38-126); Blood Urea Nitrogen 20 mg/dl (9-20); Direct Bilirubin 0.2 mg/dl (0.0-0.4); Total Bilirubin 0.3 mg/dl (0.2-1.3); Total Protein 7.1 g/dl (6.3-8.2)
[2024-04-06 12:20] LABS: PSA, Total - Diagnostic < 0.06 ng/ml (0.0-4.0)
== END ==
LOC: REG 10:37
PROVIDERS: ATTENDING PHYSICIAN Internal Medicine Hematology & Oncology; FAMILY PHYSICIAN Family Medicine
DX: C64.2 Malignant neoplasm of left kidney, except renal pelvis (principal); C61 Malignant neoplasm of prostate; Q85.00 Neurofibromatosis, unspecified; R63.4 Abnormal weight loss
CPT/HCPCS: 36415; 80076; 82565; 84153; 84443; 84520; 85025

== ENCOUNTER → 2024-04-14 08:41 | Outpatient (REF) | payer MEDICARE, OTHER, SELFPAY | LOC: RAD 08:41 | PROVIDERS: ATTENDING PHYSICIAN Surgery; FAMILY PHYSICIAN Family Medicine | DX: C61 Malignant neoplasm of prostate (principal); Q85.00 Neurofibromatosis, unspecified; R63.4 Abnormal weight loss | CPT/HCPCS: 74170; Q9967 ==

== ENCOUNTER 2024-05-02 20:03 | Inpatient (IN) | payer MEDICARE, OTHER, SELFPAY ==
[2024-05-02 14:39] VITALS: BP 137/74
[2024-05-02 14:55] LABS: % Basophils 1.1 % (0-2); % Eosinophils 1.4 % (0-6); % Immature Granulocytes 0.3 % (0-0.5); % Lymphocytes 28.4 % (20.5-51.1); % Monocytes 7.6 % (1.7-9.3); % Neutrophils 61.2 % (42.2-75.2); Absolute Basophils 0.1 10^3/uL (0-0.2); Absolute Eosinophils 0.1 10^3/uL (0-0.7); Absolute Monocytes 0.5 10^3/uL (0.1-0.6); Absolute Neutrophils 4.4 10^3/uL (1.4-6.5); Hematocrit 41.6 % (39.0-52.0); Hemoglobin 13.3 g/dL (13.0-18.0); Mean Corpuscular Hgb 30.2 pg (27.0-31.0); Mean Corpuscular Volume 94.3 fL (80.0-94.0); Mean Platelet Volume 10.4 fL (7.4-10.4); Nucleated Red Blood Cells % 0 % (-); Platelet Count 216 10^3/uL (130-400); Red Blood Cell Count 4.41 10^6/uL (4.70-6.10); Red Cell Dist. Width 13.7 % (11.5-14.5); White Blood Cell Count 7.1 10^3/uL (4.8-10.8)
[2024-05-02 15:09] LABS: ALT (SGPT) 318 U/L (0-50); AST (SGOT) 168 U/L (17-59); Albumin 4.1 g/dl (3.5-5.0); Alkaline Phosphatase 392 U/L (38-126); Blood Urea Nitrogen 26 mg/dl (9-20); Calcium 9.3 mg/dl (8.4-10.2); Carbon Dioxide 28 mmol/L (22-30); Chloride 102 mmol/L (98-107); Glucose 113 mg/dl (70-99); Lipase 118 U/L (23-300); Potassium 4.6 mmol/L (3.5-5.1); Sodium 137 mmol/L (135-145); Total Protein 7.4 g/dl (6.3-8.2); eGFR > 60.00
[2024-05-02 16:00] VITALS: BP 128/71
--- NOTE | 2024-05-02 16:05 | ED.GENMED ---
History of Present Illness
General
Chief Complaint: Skin Problem
Source: patient and spouse
Exam Limitations: none
Time Seen by Provider: 05/02/24 15:56
Nursing documentation reviewed up to this point in time: agreed with
History of Present Illness
History of Present Illness:
Patient to ED with complaint of jaundice. States he developed itchy skin last week and noted jaundice today. States he was at [facility] receiving his Leqembi infusion when staff noticed jaundice. He was referred to ED and came here. He denies any
abdominal pain. reports approx 30-40lb weight loss in the past 6 months. Notes yellow stools. No vomiting. PMH prostate, kidney CA
Past History
Past History
ED Past Medical History: Arrthythmia (Afib - has watchman), Cancer (prostate, kidne) and HTN
ED Past Surgical History: Cardiac (watchman) and Other (Nephrectomy, prostatectomy)
Review of Systems
Review of Systems
Allergies reviewed?: Yes
All Other Systems: ROS reviewed and negative except as documented in HPI and ROS
Constitutional: Reports weight loss (30-40lbs in 6mos)
EENT: Reports no symptoms
Respiratory: Reports no symptoms
Cardiac: Reports no symptoms
ABD/GI: Reports other (yellow stools)
: Reports no symptoms
Musculoskeletal: Reports no symptoms
Skin: Reports other (jaundice)
Neurological: Reports no symptoms
Psychiatric: Reports no symptoms
Phy Exam
General Physical Exam
General Presentation: no apparent distress
General age: appears stated age
General Skin: warm and dry
General Habitus: normal
Cardiovascular Exam
Cardiovascular Exam: regular rate/rhythm and no edema
Gastrointestinal Exam
Gastrointestinal Exam: normal bowel sounds, non tender, soft, no organomegaly, non distended and no cva tenderness
Musculoskeletal Exam
Musculoskeletal Exam: full ROM and neuro vasc intact
Skin Exam
Skin Exam: warm/dry, no rash, no petechia and jaundice
Psychiatric Exam
Psychiatric Exam: normal mood/affect
Course
Orders/Labs/Results
Orders:
Orders
05/02/24 14:44
Complete Blood Count/With Diff Urgent
Comprehensive Metabolic Panel Urgent
Lipase Urgent
05/02/24 Dinner
Regular
At Your Request: Full Participation
05/02/24 16:04
US Abdomen Complete/Upper Urgent
Comment:
Reason For Exam: elevated LFT's, nonpainful jaundice
05/02/24 19:00
0.9% Sodium Chloride 1000 ml [Nss] 1,000 ml IV 125 mls/hr
05/02/24 19:39
Admit/Transfer Patient As Directed
Co-Sign Provider:
Level of Care: Inpatient admission
Assign to:: Medical/Surgical
Physician / Group: [email or web address]
Diagnosis: painless jaundice
Reason for Hospitalization: painless jaundice
Expected length of stay greater than two midnights?: Yes
ELOS- Estimated Length of Stay in days: 2
I certify the patient meets the requirements for IP care: Yes
PRN Pain Medication Management As Directed
May give lesser potent ordered pain med per pt: Yes
preference::
Protocol:: Medication orders for pain may be administered in a
manner that supports deferring to patient preference
when the pt is:
- Requesting an ordered lesser potent pain medication.
Least to most potent pain medications are defined
as: acetaminophen < NSAID < tramadol < opioids
(morphine, oxycodone, hydromorphone).
- Requesting a lesser dose of the same medication IF
ORDERED.
- Requesting a less intrusive route of administration
if both routes are prescribed by the provider (PO <
IV).
05/02/24 19:40
Code Status As Directed
Resuscitation Status: Full Code
05/02/24 19:47
GASTROINTESTINAL CONSULT Routine
Consulting Provider: Claudine Hooper
Was physician already notified: Yes
05/02/24 20:40
Heparin 5,000 units SC Q12
05/02/24 20:40
MRI Abdomen [MR Abdomen With Contrast] Routine
Comment:
Reason For Exam: painless jaundice, mrcp
Recent pill cam endoscopy?: No
Activity As Directed
Activity Level: As Tolerated
Vital Signs As Directed
Frequency: Per unit guidelines
DX Deep Vein Thrombosis Video Routine
05/02/24 22:00
Donepezil [Aricept] 5 mg PO HS
05/03/24 Breakfast
NPO
Allow oral meds: Yes
Allow clear liquids: Sips of Clears
Complete Blood Count/With Diff IN AM
Comprehensive Metabolic Panel IN AM
05/03/24 08:00
Aspirin Chewable [Low Strength Aspirin] 81 mg PO DAILY
Cholecalciferol (Vitamin D3) [VITAMIN D3 (cholecalciferol)] 50 mcg PO DAILY
Metoprolol Xl [Toprol Xl] 50 mg PO DAILY
Abnormal Lab Results
05/02/24
14:44
RBC 4.41 L 10^6/uL
(4.70-6.10)
MCV 94.3 H fL
(80.0-94.0)
MCHC 32.0 L g/dL
(33.0-37.0)
BUN 26 H mg/dl
(9-20)
Glucose 113 H mg/dl
(70-99)
Total Bilirubin 7.0 H mg/dl
(0.2-1.3)
AST 168 H U/L
(17-59)
ALT 318 H U/L
(0-50)
Alkaline Phosphatase 392 H U/L
(38-126)
05/02/24 14:44
05/02/24 14:44
Vital Signs
Initial and Last Documented VS:
Initial Vital Signs
Temp Pulse Resp BP Pulse Ox
97.8 F 54 16 137/74 100
05/02/24 14:39 05/02/24 14:39 05/02/24 14:39 05/02/24 14:39 05/02/24 14:39
Last Documented Vital Signs
Temp Pulse Resp BP Pulse Ox
98.1 F 48 18 134/72 96
05/02/24 22:49 05/02/24 18:15 05/02/24 18:40 05/02/24 20:54 05/02/24 22:00
*Radiology
Radiology exam reviewed: radiology read reviewed
*Pulse Oximetry
Patient hypoxic: no
*Critical Care Note
Total Time (30-74mins, 75-104mins- exclusive of procedures): Not Applicable
Update Note
Update Note:
Discussed US findings with patient and spouse. Will need MRCP, admit to hospitalist service.
ED Attending Note
-
Portions of this chart may have been created with voice recognition software.� Occasional wrong word or��sound alike� substitutions may have occurred due to the inherent limitations of voice recognition software.
Discharge Plan
Departure
Patient Disposition: Admit
Date of Disposition: 05/02/24
Time of Disposition: 18:59
Presentation/result/management discussed w/ accepting MD/DO: Hospitalist
Patient with high blood pressure during this ER visit?: No
Condition: Fair
Covid-19: Not Applicable
Discharge Problem:
Dilated bile duct, Elevated LFTs, Jaundice
Interventions
Interventions:
*Risk Screen - Suicide Last Done: 05/02/24 16:12
*Neglect/Abuse Screening Last Done: 05/02/24 16:12
*ED COVID-19 Vaccine History Last Done: 05/02/24 16:12
ED-Skin Assessment Last Done: 05/02/24 17:00
--- NOTE | 2024-05-02 19:43 | HPS.HSE ---
Family Physician
-
Family Physician: Prince Tripp DO
Chief Complaint
-
jaundice
History of Present Illness
78-year-old male past medical history of permanent atrial fibrillation status post Watchman, hypertension, mild mitral regurgitation, diverticulosis, Alzheimer's disease, prior CVA, renal cell carcinoma status post left radical nephrectomy, prostate
cancer status post radical proctectomy, skin cancer, presenting with itchy skin last week and jaundice today. Denies abdominal pain. Denies fevers or chills. He has lost 30 to 40 pounds in the past 6 months. He has paler stool. Denies vomiting.
Denies recent travel. Denies any history of gallbladder problems.
Denies smoking or alcohol use.
Denies any family history of biliary problems or liver problems.
Medical History
Past Medical History
Past Medical History: Reports Other (permanent atrial fibrillation status post Watchman, hypertension, mild mitral regurgitation, diverticulosis, Alzheimer's disease, prior CVA, renal cell carcinoma status post left radical nephrectomy, prostate
cancer status post radical proctectomy, skin cancer,)
Past Surgical History: Reports None
Social History
Tobacco: Non-smoker
Alcohol: None
Drug: None
Family History
Family History: Not pertinent
Allergies / Home Medications
Allergies reflects when Allergies were last updated in [facility].
Home Medications with original date entered in [facility]
Allergy/Medication List:
Allergies
Allergy/AdvReac Type Severity Reaction Status Date / Time
No Known Allergies Allergy Verified 09/24/23 07:49
Home Medications
cholecalciferol (vitamin D3) 50 mcg (2,000 unit) capsule (Vitamin D3) 50 mcg PO DAILY Supplement 04/17/22
metoprolol succinate 50 mg tablet,extended release 24 hr 50 mg PO DAILY Blood Pressure 04/17/22
ascorbic acid (vitamin C) 500 mg tablet (Vitamin C) 500 mg PO DAILY 05/02/24
aspirin 81 mg chewable tablet 81 mg PO DAILY 05/02/24
donepezil 5 mg tablet 5 mg PO HS 05/02/24
lecanemab-irmb 100 mg/mL intravenous solution (Leqembi) 0 mg IV Q2W 05/02/24
Review of Systems
-
History Source: Patient
A 12 point ROS was completed and negative except as noted: Yes
Constitutional: Reports No Symptoms
EENT: Reports No Symptoms
Respiratory: Reports No Symptoms
Cardiac: Reports No Symptoms
Abdomen/GI: Reports See HPI
: Reports No Symptoms
Musculoskeletal: Reports No Symptoms
Skin: Reports No Symptoms
Neurological: Reports No Symptoms
Endocrine: Reports No Symptoms
Hematologic/Lymphatic: Reports No Symptoms
Psych: Reports No Symptoms
Physical Exam
Vital Signs
Vital Signs
Temp Pulse Resp BP Pulse Ox
97.8 F 54 16 128/71 100
05/02/24 14:39 05/02/24 14:39 05/02/24 18:00 05/02/24 16:00 05/02/24 14:39
Physical Exam
General: Well Developed, Well Nourished and No Apparent Distress
HEENT: NormoCephalic, Moist mucous membranes and Atraumatic
Respiratory: Clear
Cardiac: S1/S2 and Regular Rhythm; No Murmur or Rub
GI: Soft, Non Tender, Non Distended and Normal Bowel Sounds; No Organomegaly
Rectal: Deferred by Provider
Musculoskeletal: No Clubbing, No Cyanosis and No Edema
Skin: No Rash
Neuro: Nonfocal/grossly intact
Laboratory Results
-
05/02/24 14:44
05/02/24 14:44
Laboratory Results
Total Bilirubin 7.0 mg/dl (0.2-1.3) H 05/02/24 14:44
AST 168 U/L (17-59) H 05/02/24 14:44
ALT 318 U/L (0-50) H 05/02/24 14:44
Alkaline Phosphatase 392 U/L (38-126) H 05/02/24 14:44
Lipase 118 U/L (23-300) 05/02/24 14:44
Data Reviewed
-
Lab Data: Labs Reviewed by me
Old Records: Reviewed
Impression/Plan
-
IMPRESSION:
PLAN:
# Painless jaundice/transaminitis/hyperbilirubinemia
-Bilirubin 7
-Abdominal ultrasound shows intrahepatic and extrahepatic bile duct dilatation, mild main pancreatic ductal dilatation, gallbladder with intraluminal sludge
-Check MRCP
-GI consulted
-N.p.o. past midnight
Permanent atrial fibrillation status post Watchman
-Continue metoprolol
Essential hypertension
Mild mitral regurgitation
Diverticulosis
Alzheimer's disease
-Continue donepezil
-on leqembi
Prior CVA
-Continue aspirin
Renal cell carcinoma status post left radical nephrectomy
-On leqembi
Prostate cancer status post radical bursectomy
Skin cancer
Full code
DVT prophylaxis�heparin
Regular diet, n.p.o. past midnight
[2024-05-02 20:54] VITALS: BP 134/72
[2024-05-02] MEDS: ARICEPT 5 MG PO (22:42)
[2024-05-02] MEDS: HEPARIN 5000 UNITS SC (22:42)
[2024-05-02] MEDS: NSS 1000 IV (22:45)
[2024-05-03] VITALS (7 sets, daily range): BP systolic 124–145; BP diastolic 58–78
[2024-05-03 04:56] LABS: % Immature Granulocytes 0.5 % (0-0.5); % Lymphocytes 25.7 % (20.5-51.1); % Monocytes 8.6 % (1.7-9.3); % Neutrophils 62.2 % (42.2-75.2); Absolute Basophils 0.1 10^3/uL (0-0.2); Absolute Eosinophils 0.2 10^3/uL (0-0.7); Absolute Monocytes 0.7 10^3/uL (0.1-0.6); Absolute Neutrophils 4.9 10^3/uL (1.4-6.5); Hematocrit 36.6 % (39.0-52.0); Hemoglobin 12.4 g/dL (13.0-18.0); Mean Corp Hgb Conc. 33.9 g/dL (33.0-37.0); Mean Corpuscular Hgb 30.8 pg (27.0-31.0); Mean Corpuscular Volume 90.8 fL (80.0-94.0); Mean Platelet Volume 11.2 fL (7.4-10.4); Nucleated Red Blood Cells % 0 % (-); Platelet Count 207 10^3/uL (130-400); Red Blood Cell Count 4.03 10^6/uL (4.70-6.10); Red Cell Dist. Width 13.6 % (11.5-14.5); White Blood Cell Count 7.9 10^3/uL (4.8-10.8)
[2024-05-03 04:57] LABS: ALT (SGPT) 319 U/L (0-50); AST (SGOT) 176 U/L (17-59); Albumin 4.1 g/dl (3.5-5.0); Alkaline Phosphatase 392 U/L (38-126); Blood Urea Nitrogen 24 mg/dl (9-20); Calcium 8.8 mg/dl (8.4-10.2); Carbon Dioxide 20 mmol/L (22-30); Chloride 106 mmol/L (98-107); Glucose 91 mg/dl (70-99); Potassium 4.6 mmol/L (3.5-5.1); Sodium 139 mmol/L (135-145); Total Protein 7.1 g/dl (6.3-8.2); eGFR > 60.00
[2024-05-03 06:07] LABS: Hepatitis C Antibody Negative (Negative)
--- NOTE | 2024-05-03 08:11 | CON.GI ---
Consultation
-
Date/Time Consultation Requested: 05/02/24 19:47
Date/Time Consultation Performed: 05/03/24 08:12
Requesting Provider: Cara Esteves MD
Performing Provider: Lucinda Flores MD
Reason for Consultation: Painless jaundice and transaminitis
Medical History
Chief Complaint / HPI
Chief Complaint: jaundice
History of Present Illness:
Mr Ureña is a 78 year old male who presented to the hospital for an evaluation of his painless jaundice which started 2 days ago. He has a PMH of A-fib(Watchman),HTN, Mild mitral regurgitation, diverticulosis, Prior CVA,Alzheimer's disease, RCC
(s/p left radical nephrectomy), Prostate cancer (s/p prostatectomy), skin cancer. The patient also reported his urine color got darker and his stool color was bautista for a last few days and he was itchy for last 4-5 days. He denied any associated
abdominal pain,constipation, diarrhea, nausea, vomiting,fever, chills. He has lost 30 to 40 pounds in the past 6 months. The patient denies any new medication except Leqembi which was started biweekly on 12/01/23 to address his Alzheimer's
disease He denies any side effects with the medication. No prior history of hepatobiliary disease.
Past Medical History
Past Medical History: Arrhythmias (Atrial fibrillation( Watchman device) ), CVA, HTN, Valvular Disease (mild mitral regurgitation) and Other (Alzheimer's disease, diverticulosis, renal cell carcinoma status post left radical nephrectomy, prostate
cancer status post radical proctectomy, skin cancer)
Past Surgical History: None
Social History
Tobacco: Non-Smoker
Alcohol: None
Drug: None
Personal:
Living: With Family
Family History
Family History: Reviewed & Not Pertinent
Allergies / Home Medications
Allergy/AdvReac Type Severity Reaction Status Date / Time
No Known Allergies Allergy Verified 09/24/23 07:49
�Medication �Instructions �Recorded
cholecalciferol (vitamin D3) 50 50 mcg PO DAILY Supplement 04/17/22
mcg (2,000 unit) capsule (Vitamin
D3)
metoprolol succinate 50 mg 50 mg PO DAILY Blood Pressure 04/17/22
tablet,extended release 24 hr
ascorbic acid (vitamin C) 500 mg 500 mg PO DAILY 05/02/24
tablet (Vitamin C)
aspirin 81 mg chewable tablet 81 mg PO DAILY 05/02/24
donepezil 5 mg tablet 5 mg PO HS 05/02/24
lecanemab-irmb 100 mg/mL 0 mg IV Q2W 05/02/24
intravenous solution (Leqembi)
Review of Systems
-
History Source: Patient and Family
Constitutional: Reports No Symptoms
EENT: Reports No Symptoms
Respiratory: Reports No Symptoms
Cardiac: Reports No Symptoms
Abdomen/GI: Reports No Symptoms and Other (light colored stool )
: Reports No Symptoms, Dark Urine and Other
Musculoskeletal: Reports No Symptoms
Skin: Reports No Symptoms
Neurological: Reports No Symptoms
Vital Signs
Temp Pulse Resp BP Pulse Ox
98.5 F 48 18 134/72 100
05/03/24 04:26 05/02/24 18:15 05/02/24 18:40 05/02/24 20:54 05/03/24 04:26
Physical Exam
Exam
General: Well Developed, Well Nourished and No Apparent Distress
HEENT: Normocephalic and Moist Mucous Membranes
Respiratory: Clear
Cardiac: S1/S2 and Regular Rhythm
GI: Soft, Non Tender, Non Distended and Other (No abdominal pain during PE )
Musculoskeletal: No Clubbing and No Edema
Skin: Warm, Dry and Other (Jaundice )
Neuro: Awake, Alert, Oriented, AO x 3 and Nonfocal/Grossly Intact
Results
WBC 7.9 10^3/uL (4.8-10.8) 05/03/24 04:20
Hgb 12.4 g/dL (13.0-18.0) L 05/03/24 04:20
Hct 36.6 % (39.0-52.0) L 05/03/24 04:20
MCV 90.8 fL (80.0-94.0) 05/03/24 04:20
Plt Count 207 10^3/uL (130-400) 05/03/24 04:20
Absolute Neuts (auto) 4.9 10^3/uL (1.4-6.5) 05/03/24 04:20
Sodium 139 mmol/L (135-145) 05/03/24 04:20
Potassium 4.6 mmol/L (3.5-5.1) 05/03/24 04:20
Chloride 106 mmol/L (98-107) 05/03/24 04:20
Carbon Dioxide 20 mmol/L (22-30) L 05/03/24 04:20
BUN 24 mg/dl (9-20) H 05/03/24 04:20
Creatinine 1.0 mg/dL (0.7-1.3) 05/03/24 04:20
Calcium 8.8 mg/dl (8.4-10.2) 05/03/24 04:20
Total Bilirubin 7.0 mg/dl (0.2-1.3) H 05/03/24 04:20
AST 176 U/L (17-59) H 05/03/24 04:20
ALT 319 U/L (0-50) H 05/03/24 04:20
Alkaline Phosphatase 392 U/L (38-126) H 05/03/24 04:20
Lipase 118 U/L (23-300) 05/02/24 14:44
Hepatitis C Antibody Negative (Negative) 05/03/24 04:20
Diagnostic Image Results:
Abd US 05/02/24
FINDINGS:
LIVER: The liver measures up to 15.7 cm in length. The hepatic echotexture is homogeneous without focal lesion.
BILE DUCTS: Intrahepatic and extrahepatic bile duct dilatation. The common bile duct measures 1.7 cm in diameter.
GALLBLADDER: Distended gallbladder containing sludge. No shadowing gallbladder calculus. The anterior gallbladder wall measures 2 mm in thickness. The sonographic Adrian's sign was reportedly negative.
RETROPERITONEUM: The main pancreatic duct is mildly dilated measures 0.4 cm in caliber. The imaged portions of the intra-abdominal inferior vena cava and abdominal aorta appear normal.
SPLEEN: The spleen is normal in size measuring 7.7 cm in length.
KIDNEYS: The right kidney measures 10.4 x 5.1 x 5.5 cm in size. There is no hydronephrosis. The left kidney is surgically absent.
There is no sonographic evidence for abdominal ascites.
IMPRESSION:
Intrahepatic and extrahepatic bile duct dilatation. Mild main pancreatic ductal dilatation. Distended gallbladder containing intraluminal sludge. Recommend correlation with laboratory values. An ERCP or abdominal MRI/MRCP could be performed for
further evaluation.
Prior GI Procedures:
EGD: Not Known
Colonoscopy: 01/03/14 Findings:
Multiple small and large-mouthed diverticula were found in the sigmoid
colon and in the descending colon.
No additional abnormalities were found on retroflexion.
No other significant abnormalities were identified in a careful
examination of the remainder of the colon.
The terminal ileum appeared normal.
Impression: - Diverticulosis in the sigmoid colon and in the
descending colon.
- The examined portion of the ileum was normal.
Assessment / Plan
-
Assessment
The patient is a 78 years old male who presented to hospital after noticing his had jaundice associated itchiness, dark colored urine and bautista colored stool. He did not have any other GI symptoms including abdominal pain, nausea, vomiting, diarrhea
or constipation. The patient has been diagnosed with RCC for which had a surgery about 1.5 year ago and has follow ups with his physician Dr Anders Ibarra without a significant problem. At admission, his abdominal US showed Intrahepatic and
extrahepatic bile duct dilatation and Mild main pancreatic ductal dilatation. and Distended gallbladder. Lab results were significant for elevated AST to 176, ALT to 319, ALP 392, TB to 7. MRI/MRCP was ordered to see more details about the
biliary duct area which showed pancreatic head adenocarcinoma resulting severe dilatation of complete distal common bile duct obstruction.
Impression
Painless jaundice with transaminitis/hyperbilirubinemia
Hx of RCC (p/s left radical nephrectomy)
Diverticulosis
Atrial Fibrillation (Watchman)
Essential hypertension
Mild mitral regurgitation
Alzheimer's disease
Plan
#Painless jaundice with transaminitis/hyperbilirubinemia possibly secondary to pancreatic mass
-No prior hx of hepatobiliary problems
-Abd US:Intrahepatic and extrahepatic bile duct dilatation, mild main pancreatic ductal dilatation, gallbladder with intraluminal sludge
-Elevated LFTs AST 176, ALT 319, ALP 392,elevated TB 7
-Keep patient NPO
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
-EUS/ERCP is planning
-
-
Thank you for consultation and allowing me to participate in the patient's care. Please call the [facility] physician during the after hours with any questions or concerns.
[2024-05-03] MEDS: NSS IV ×2 (08:14→12:02)
[2024-05-03] MEDS: VITAMIN D3 (cholecalciferol) 50 MCG PO (09:03)
[2024-05-03] MEDS: TOPROL XL 50 MG PO (09:03)
[2024-05-03] MEDS: LOW STRENGTH ASPIRIN 81 MG PO (09:03)
[2024-05-03] MEDS: HEPARIN 5000 UNITS SC (09:04)
--- NOTE | 2024-05-03 14:23 | W.PN.HOSP.TC ---
Today's Communication/Plan
-
Likely DC tomorrow
Assessment / Plan
Assessment / Plan
NAD, thin
Scleral Anicteric
MMM
No JVD
CTABL
RRR, S1/S2
Soft, NT, ND, BS+
Warm, Dry, Jaundice
AAOx3
Calm
Painless Jaundice
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
-Will need EUS w/ Bx and ERCP
-Currently NPO will maintain
-I spoke with GI will plan for EUS + Bx/ERCP today
-Will check CA19-9 and CEA
-Outpatient Onc follow up
Renal cell carcinoma status post left radical nephrectomy
-Hx of, Outpatient onc follow up
Prostate cancer status post radical prostectomy
-Hx of, Outpatient onc follow up
Alzheimers - Early stages
-Continue Leqembi
Afib
-Continue BB
-S/p watchman
Total time spent 67minutes between discussing reults and speaking with child welfare consultant services via cell phone
Anticipated Discharge: Within 24 hours
Subjective/Interval History
-
Date of Service: May 03, 2024
Seen and exmaine. sitting in bedside chair
Painless jaundice without evidence of cholangitis
Admits to pale stools and gomes urine
Objective Data
-
Labs:
Laboratory Results
05/03/24
04:20
WBC 7.9
Hgb 12.4 L
Hct 36.6 L
Plt Count 207
Sodium 139
Potassium 4.6
Chloride 106
Carbon Dioxide 20 L
BUN 24 H
Creatinine 1.0
Glucose 91
Calcium 8.8
Total Bilirubin 7.0 H
AST 176 H
ALT 319 H
Alkaline Phosphatase 392 H
Vital Signs:
Vital Signs
Temp Pulse Resp BP Pulse Ox
97.3 F 50 18 132/58 96
05/03/24 09:11 05/03/24 09:11 05/03/24 09:11 05/03/24 09:11 05/03/24 09:11
[2024-05-03] MEDS: NSS 1000 IV (16:57)
[2024-05-03 17:14] LABS: CEA 2.36 ng/ml
[2024-05-03] MEDS: ARICEPT 5 MG PO (21:10)
[2024-05-04 07:23] LABS: Mean Corp Hgb Conc. 33.3 g/dL (33.0-37.0); Mean Corpuscular Hgb 30.7 pg (27.0-31.0); Mean Corpuscular Volume 92.2 fL (80.0-94.0); Mean Platelet Volume 11.2 fL (7.4-10.4); Platelet Count 175 10^3/uL (130-400); Red Blood Cell Count 3.58 10^6/uL (4.70-6.10); Red Cell Dist. Width 13.4 % (11.5-14.5)
[2024-05-04 07:45] VITALS: BP 106/53
[2024-05-04] MEDS: TOPROL XL PO (09:19)
[2024-05-04] MEDS: VITAMIN D3 (cholecalciferol) 50 MCG PO (09:19)
[2024-05-04] MEDS: LOW STRENGTH ASPIRIN 81 MG PO (09:19)
[2024-05-04 09:44] LABS: ALT (SGPT) 251 U/L (0-50); AST (SGOT) 111 U/L (17-59); Albumin 3.3 g/dl (3.5-5.0); Alkaline Phosphatase 343 U/L (38-126); Blood Urea Nitrogen 24 mg/dl (9-20); Calcium 8.3 mg/dl (8.4-10.2); Carbon Dioxide 22 mmol/L (22-30); Chloride 108 mmol/L (98-107); Glucose 98 mg/dl (70-99); Potassium 4.2 mmol/L (3.5-5.1); Sodium 139 mmol/L (135-145); Total Bilirubin 3.6 mg/dl (0.2-1.3); Total Protein 5.9 g/dl (6.3-8.2); eGFR 55.88
--- NOTE | 2024-05-04 09:45 | CM ---
CM reviewed medical records. Patient is independent with . Patient has had a history of [facility]. No history of SNF.
PLAN: Home no needs
--- NOTE | 2024-05-04 10:22 | W.PN.HOSP.TC ---
Today's Communication/Plan
-
dc home
Assessment / Plan
Assessment / Plan
NAD, thin
Scleral Anicteric
MMM
No JVD
CTABL
RRR, S1/S2
Soft, NT, ND, BS+
Warm, Dry, Jaundice
AAOx3
Calm
Painless Jaundice
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
-s/p eus w/ bx and ercp with sphinctetomy/dilation and stent placement
--bx pending results
-CA19-9 pending
-cea 2.34
-Outpatient Onc follow up
Pulm nodule
-Concern for pulm mets
-Cannot completed exclude if inflam nod
Renal cell carcinoma status post left radical nephrectomy
-Hx of, Outpatient onc follow up
Prostate cancer status post radical prostectomy
-Hx of, Outpatient onc follow up
Alzheimers - Early stages
-Continue Leqembi
Afib
-Continue BB
-S/p watchman
DC home
More than 30 minutes spent in discharge including
Final examination of the patient
Summarizing hospital stay
Instructions for continuing care to all relevant caregivers
Preparation of discharge records, prescriptions, and referral forms
Total time spent (in minutes): 35mins
Anticipated Discharge: Today
Subjective/Interval History
-
Date of Service: May 04, 2024
seen and exmiend
no abd pain
had a bm
toelrating diet
Objective Data
-
Labs:
Laboratory Results
05/04/24
07:00
WBC 12.0 H
Hgb 11.0 L
Hct 33.0 L
Plt Count 175
Sodium 139
Potassium 4.2
Chloride 108 H
Carbon Dioxide 22
BUN 24 H
Creatinine 1.3
Glucose 98
Calcium 8.3 L
Total Bilirubin 3.6 H
AST 111 H
ALT 251 H
Alkaline Phosphatase 343 H
Vital Signs:
Vital Signs
Temp Pulse Resp BP Pulse Ox
98 F 43 17 106/53 98
05/04/24 07:45 05/04/24 09:19 05/04/24 07:45 05/04/24 07:45 05/04/24 07:45
I&O
05/03/24 05/04/24 05/05/24
06:59 06:59 06:59
Intake Total 1330 / 1330
Balance 1330 / 1330
--- NOTE | 2024-05-04 10:25 | W.DCSUMMARY ---
Discharge Summary
Discharge Data
Date of Admission: 05/02/24
Date of Discharge: 05/04/24
-
Pending Results: Yes
Additional Pending Results:
eus bx
ca19-9
Hospital Course
78-year-old male past medical history of permanent atrial fibrillation status post Watchman, hypertension, mild mitral regurgitation, diverticulosis, Alzheimer's disease, prior CVA, renal cell carcinoma status post left radical nephrectomy s/p
immunotherapy with keytruda, prostate cancer status post radical proctectomy, skin cancer
Presented with painless jaundice. Found to have elevated liver enzymes. Abdominal ultrasound demonstrated intrahepatic/extrahepatic bile duct dilatation. Mild main pancreatic duct dilatation. Distended gallbladder containing intraluminal sludge.
ERCP/abdominal MRI/MRCP recommended. Therefore MRCP completed demonstrating severe biliary dilatation secondary to complete distal common bile duct obstruction by 2.7 cm pancreatic head adenocarcinoma. Additionally noted 8 mm pulmonary nodule in
the right middle lobe suspicious for pulmonary mets. Minimal ascites. Severely distended gallbladder. Complete obstruction pancreatic duct with pancreatic ductal dilatation multiple small pancreatic cyst. CA 19-9 pending. Discussed case with GI
agreed with EUS/ERCP. EUS/ERCP was completed biopsy obtained along with sphincterotomy, balloon dilatation and stent placement of the occluded area. Post procedurally tolerated diet well. No evident signs of abdominal pain. Discharged home with
outpatient oncology follow-up once biopsy results return.
Abd US
IMPRESSION:
Intrahepatic and extrahepatic bile duct dilatation. Mild main pancreatic ductal dilatation. Distended gallbladder containing intraluminal sludge. Recommend correlation with laboratory values. An ERCP or abdominal MRI/MRCP could be performed for
further evaluation.
MRCP
IMPRESSION:
1. 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
2. Complete obstruction of the pancreatic duct with pancreatic ductal dilatation and multiple small pancreatic cysts.
3. Severely distended gallbladder.
4. Large amount of fecal material throughout the colon consistent with constipation.
5. Minimal ascites.
6. Previous left nephrectomy.
7. 8 mm pulmonary nodule in the right middle lobe suspicious for a pulmonary metastasis. An infectious or inflammatory pulmonary nodule is an alternative diagnostic possibility.
8. Severe discogenic degenerative disease at L4/L5 and L5/S1.
EUS with Bx
Impression: - A mass was identified in the pancreatic head. This
was staged T2 Nx Mx by endosonographic criteria. Fine
needle aspiration performed.
- There was dilation in the common bile duct which
measured up to 17 mm.
- One abnormal lymph node was visualized in the
peripancreatic region.
- There was no evidence of significant pathology in
the left lobe of the liver.
ERCP
FINDINGS/impression:
Fluoroscopy provided and images obtained for procedure guidance.
Images provided demonstrate cannulation of the common bile duct, with contrast administration. Dilated biliary ductal system with long segment distal stenosis. Subsequently, sphincterotomy performed, balloon dilatation, and stent placement.
Discharge Plan
-
Patient Disposition: Home (Routine Discharge)
Discharge Diagnosis/Procedures: Painless Jaundice
Pancreatic mass/Adenocarcinoma
Condition: Serious
Diet: As tolerated, Low Fat and Low Cholesterol
Activity: As tolerated
Activity Restrictions/Additional Instructions:
Presented with painless jaundice. Found to have elevated liver enzymes. Abdominal ultrasound demonstrated intrahepatic/extrahepatic bile duct dilatation. Mild main pancreatic duct dilatation. Distended gallbladder containing intraluminal sludge.
ERCP/abdominal MRI/MRCP recommended. Therefore MRCP completed demonstrating severe biliary dilatation secondary to complete distal common bile duct obstruction by 2.7 cm pancreatic head adenocarcinoma. Additionally noted 8 mm pulmonary nodule in
the right middle lobe suspicious for pulmonary mets. Minimal ascites. Severely distended gallbladder. Complete obstruction pancreatic duct with pancreatic ductal dilatation multiple small pancreatic cyst. CA 19-9 pending. Discussed case with GI
agreed with EUS/ERCP. EUS/ERCP was completed biopsy obtained along with sphincterotomy, balloon dilatation and stent placement of the occluded area. Post procedurally tolerated diet well. No evident signs of abdominal pain. Discharged home with
outpatient oncology follow-up once biopsy results return.
Abd US
IMPRESSION:
Intrahepatic and extrahepatic bile duct dilatation. Mild main pancreatic ductal dilatation. Distended gallbladder containing intraluminal sludge. Recommend correlation with laboratory values. An ERCP or abdominal MRI/MRCP could be performed for
further evaluation.
MRCP
IMPRESSION:
1. 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
2. Complete obstruction of the pancreatic duct with pancreatic ductal dilatation and multiple small pancreatic cysts.
3. Severely distended gallbladder.
4. Large amount of fecal material throughout the colon consistent with constipation.
5. Minimal ascites.
6. Previous left nephrectomy.
7. 8 mm pulmonary nodule in the right middle lobe suspicious for a pulmonary metastasis. An infectious or inflammatory pulmonary nodule is an alternative diagnostic possibility.
8. Severe discogenic degenerative disease at L4/L5 and L5/S1.
EUS with Bx
Impression: - A mass was identified in the pancreatic head. This
was staged T2 Nx Mx by endosonographic criteria. Fine
needle aspiration performed.
- There was dilation in the common bile duct which
measured up to 17 mm.
- One abnormal lymph node was visualized in the
peripancreatic region.
- There was no evidence of significant pathology in
the left lobe of the liver.
ERCP
FINDINGS/impression:
Fluoroscopy provided and images obtained for procedure guidance.
Images provided demonstrate cannulation of the common bile duct, with contrast administration. Dilated biliary ductal system with long segment distal stenosis. Subsequently, sphincterotomy performed, balloon dilatation, and stent placement.
Referrals:
Modesta Subramanian MD [Active] - in one to two weeks
Claudine Hooper DO [Active] -
Madelyn Waed MD [Family Provider] -
Prescriptions:
Continued
metoprolol succinate 50 mg Tablet Extended Release 24 Hr
50 mg PO DAILY
cholecalciferol (vitamin D3) [Vitamin D3] 50 mcg (2,000 unit) Capsule
50 mcg PO DAILY
donepezil 5 mg Tablet
5 mg PO HS
Leqembi 100 mg/mL Solution
0 mg IV Q2W
ascorbic acid (vitamin C) [Vitamin C] 500 mg Tablet
500 mg PO DAILY
aspirin 81 mg Tablet,Chewable
81 mg PO DAILY
Discharge Orders:
Discharge Patient (As Directed); Ordered 05/04/24
Ordered By: Sharif Gomez
Discharge Date and Time
Print Language: VINCENTIAN
[2024-05-06 06:16] LABS: CA 19-9 427 U/mL (<=35)
== END 2024-05-04 10:54 | disposition home or self-care (01) | DRG 435 ==
LOC: 1 ACUTE 20:03
PROVIDERS: Emergency Medicine; Internal Medicine Gastroenterology; Nurse Practitioner Adult Health; ADMITTING PHYSICIAN Hospitalist; ATTENDING PHYSICIAN Hospitalist; EMERGENCY PHYSICIAN Emergency Medicine; OTHER PHYSICIAN Internal Medicine Gastroenterology
PROC: 0F778DZ Dilation of Common Hepatic Duct with Intraluminal Device, Via Natural or Artificial Opening Endoscopic (ICD-10-PCS; 2024-05-02)
PROC: 0F798DZ Dilation of Common Bile Duct with Intraluminal Device, Via Natural or Artificial Opening Endoscopic (ICD-10-PCS; 2024-05-02)
PROC: 0FDG8ZX Extraction of Pancreas, Via Natural or Artificial Opening Endoscopic, Diagnostic (ICD-10-PCS; 2024-05-03)
DX: C25.0 Malignant neoplasm of head of pancreas (principal); K83.1 Obstruction of bile duct; I48.21 Permanent atrial fibrillation; C78.01 Secondary malignant neoplasm of right lung; K86.2 Cyst of pancreas; G30.8 Other Alzheimer's disease; F02.80 Dementia in other diseases classified elsewhere, unspecified severity, without behavioral disturbance, psychotic disturbance, mood disturbance, and anxiety; I10 Essential (primary) hypertension; I34.0 Nonrheumatic mitral (valve) insufficiency; K57.30 Diverticulosis of large intestine without perforation or abscess without bleeding; K59.00 Constipation, unspecified; K86.89 Other specified diseases of pancreas; Z95.818 Presence of other cardiac implants and grafts; Z90.79 Acquired absence of other genital organ(s); Z90.5 Acquired absence of kidney; Z86.73 Personal history of transient ischemic attack (TIA), and cerebral infarction without residual deficits; Z85.46 Personal history of malignant neoplasm of prostate; Z85.528 Personal history of other malignant neoplasm of kidney; Z85.828 Personal history of other malignant neoplasm of skin; Z79.82 Long term (current) use of aspirin
CPT/HCPCS: 88172; 88173; 88305; 74183; 74330; 76000; 76700; 80053; 82378; 83690; 85025; 85027; 86301; 86803; 88341; 88342; 99285; A9575; C1726; C1769; C1874; C2625

== ENCOUNTER → 2024-05-06 11:25 | Outpatient (REF) | payer MEDICARE, OTHER, SELFPAY ==
[2024-05-06 13:19] LABS: % Basophils 0.6 % (0-2); % Eosinophils 0.5 % (0-6); % Immature Granulocytes 0.6 % (0-0.5); % Lymphocytes 17.1 % (20.5-51.1); % Monocytes 9.4 % (1.7-9.3); % Neutrophils 71.8 % (42.2-75.2); Absolute Basophils 0.1 10^3/uL (0-0.2); Absolute Immature Granulocytes 0.1 10^3/uL (0-0.05); Absolute Lymphocytes 1.5 10^3/uL (1.2-3.4); Absolute Monocytes 0.8 10^3/uL (0.1-0.6); Absolute Neutrophils 6.2 10^3/uL (1.4-6.5); Mean Corp Hgb Conc. 32.5 g/dL (33.0-37.0); Mean Corpuscular Hgb 30.8 pg (27.0-31.0); Mean Corpuscular Volume 94.8 fL (80.0-94.0); Mean Platelet Volume 11.6 fL (7.4-10.4); Nucleated Red Blood Cells % 0 % (-); Platelet Count 221 10^3/uL (130-400); Red Blood Cell Count 4.22 10^6/uL (4.70-6.10); Red Cell Dist. Width 13.3 % (11.5-14.5); White Blood Cell Count 8.6 10^3/uL (4.8-10.8)
[2024-05-06 13:42] LABS: ALT (SGPT) 281 U/L (0-50); AST (SGOT) 132 U/L (17-59); Alkaline Phosphatase 300 U/L (38-126); Blood Urea Nitrogen 25 mg/dl (9-20); Calcium 9.2 mg/dl (8.4-10.2); Carbon Dioxide 29 mmol/L (22-30); Chloride 101 mmol/L (98-107); Direct Bilirubin 1.8 mg/dl (0.0-0.4); Glucose 103 mg/dl (70-99); Potassium 4.5 mmol/L (3.5-5.1); Sodium 140 mmol/L (135-145); Total Bilirubin 2.8 mg/dl (0.2-1.3); Total Protein 7.1 g/dl (6.3-8.2); eGFR > 60.00
[2024-05-06 14:12] LABS: CEA 2.05 ng/ml
== END ==
LOC: REG 11:25
PROVIDERS: ATTENDING PHYSICIAN Internal Medicine Hematology & Oncology; FAMILY PHYSICIAN Family Medicine
DX: C64.2 Malignant neoplasm of left kidney, except renal pelvis (principal); C61 Malignant neoplasm of prostate; Q85.00 Neurofibromatosis, unspecified; R63.4 Abnormal weight loss; R79.89 Other specified abnormal findings of blood chemistry
CPT/HCPCS: 36415; 80053; 82248; 82378; 85025

== ENCOUNTER → 2024-05-20 11:10 | Outpatient (REF) | payer MEDICARE, OTHER, SELFPAY ==
[2024-05-20 12:02] LABS: % Basophils 0.7 % (0-2); % Eosinophils 2.4 % (0-6); % Immature Granulocytes 0.2 % (0-0.5); % Lymphocytes 27.1 % (20.5-51.1); % Monocytes 6.6 % (1.7-9.3); Absolute Basophils 0.1 10^3/uL (0-0.2); Absolute Eosinophils 0.2 10^3/uL (0-0.7); Absolute Lymphocytes 2.2 10^3/uL (1.2-3.4); Absolute Monocytes 0.5 10^3/uL (0.1-0.6); Absolute Neutrophils 5.2 10^3/uL (1.4-6.5); Hematocrit 40.4 % (39.0-52.0); Hemoglobin 13.6 g/dL (13.0-18.0); Mean Corp Hgb Conc. 33.7 g/dL (33.0-37.0); Mean Corpuscular Hgb 30.8 pg (27.0-31.0); Mean Corpuscular Volume 91.4 fL (80.0-94.0); Mean Platelet Volume 10.3 fL (7.4-10.4); Nucleated Red Blood Cells % 0 % (-); Platelet Count 245 10^3/uL (130-400); Red Blood Cell Count 4.42 10^6/uL (4.70-6.10); Red Cell Dist. Width 12.5 % (11.5-14.5); White Blood Cell Count 8.2 10^3/uL (4.8-10.8)
[2024-05-20 12:27] LABS: ALT (SGPT) 84 U/L (0-50); AST (SGOT) 40 U/L (17-59); Albumin 4.2 g/dl (3.5-5.0); Alkaline Phosphatase 134 U/L (38-126); Blood Urea Nitrogen 24 mg/dl (9-20); Calcium 9.3 mg/dl (8.4-10.2); Carbon Dioxide 30 mmol/L (22-30); Chloride 100 mmol/L (98-107); Direct Bilirubin 0.6 mg/dl (0.0-0.4); Glucose 79 mg/dl (70-99); Potassium 4.9 mmol/L (3.5-5.1); Sodium 138 mmol/L (135-145); Total Bilirubin 1.2 mg/dl (0.2-1.3); eGFR > 60.00
[2024-05-22 01:02] LABS: CA 19-9 76 U/mL (<=35)
== END ==
LOC: REG 11:10
PROVIDERS: ATTENDING PHYSICIAN Internal Medicine Hematology & Oncology; FAMILY PHYSICIAN Family Medicine; REFERRING PHYSICIAN Internal Medicine Cardiovascular Disease
DX: C64.2 Malignant neoplasm of left kidney, except renal pelvis (principal); C61 Malignant neoplasm of prostate; Q85.00 Neurofibromatosis, unspecified; R63.4 Abnormal weight loss; C25.3 Malignant neoplasm of pancreatic duct; R91.1 Solitary pulmonary nodule; C25.0 Malignant neoplasm of head of pancreas
CPT/HCPCS: 36415; 80053; 82248; 85025; 86301

== ENCOUNTER → 2024-06-21 08:34 | Outpatient (REF) | payer MEDICARE, OTHER, SELFPAY ==
[2024-06-21 08:45] VITALS: BP 118/71; BP_SYST 63
[2024-06-21] MEDS: ANCEF 10 IV (09:35)
[2024-06-21 10:29] VITALS: BP 128/84; BP_SYST 68
[2024-06-21 12:12] LABS: % Basophils 0.9 % (0-2); % Eosinophils 1.7 % (0-6); % Immature Granulocytes 0.2 % (0-0.5); % Lymphocytes 23.3 % (20.5-51.1); % Monocytes 8.5 % (1.7-9.3); % Neutrophils 65.4 % (42.2-75.2); Absolute Basophils 0.1 10^3/uL (0-0.2); Absolute Eosinophils 0.1 10^3/uL (0-0.7); Absolute Lymphocytes 1.9 10^3/uL (1.2-3.4); Absolute Monocytes 0.7 10^3/uL (0.1-0.6); Absolute Neutrophils 5.3 10^3/uL (1.4-6.5); Hemoglobin 13.5 g/dL (13.0-18.0); Mean Corp Hgb Conc. 33.8 g/dL (33.0-37.0); Mean Corpuscular Hgb 30.4 pg (27.0-31.0); Mean Corpuscular Volume 90.1 fL (80.0-94.0); Nucleated Red Blood Cells % 0 % (-); Platelet Count 247 10^3/uL (130-400); Red Blood Cell Count 4.44 10^6/uL (4.70-6.10); Red Cell Dist. Width 12.5 % (11.5-14.5); White Blood Cell Count 8.2 10^3/uL (4.8-10.8)
[2024-06-21 13:47] LABS: ALT (SGPT) 37 U/L (0-50); AST (SGOT) 30 U/L (17-59); Albumin 4.4 g/dl (3.5-5.0); Alkaline Phosphatase 98 U/L (38-126); Blood Urea Nitrogen 17 mg/dl (9-20); Carbon Dioxide 26 mmol/L (22-30); Chloride 103 mmol/L (98-107); Glucose 111 mg/dl (70-99); Potassium 4.2 mmol/L (3.5-5.1); Sodium 141 mmol/L (135-145); Total Bilirubin 0.9 mg/dl (0.2-1.3); eGFR > 60.00
== END ==
LOC: RADI 08:34
PROVIDERS: ATTENDING PHYSICIAN Internal Medicine Hematology & Oncology; FAMILY PHYSICIAN Family Medicine
DX: C25.0 Malignant neoplasm of head of pancreas (principal)
CPT/HCPCS: 36415; 36561; 76937; 77001; 80053; 85025; 99152; 99153; C1788

== ENCOUNTER → 2024-06-24 17:38 | Outpatient (REF) | payer MEDICARE, OTHER, SELFPAY | LOC: MRI 17:38 | PROVIDERS: ATTENDING PHYSICIAN Internal Medicine Hematology & Oncology; FAMILY PHYSICIAN Neurological Surgery | DX: C25.0 Malignant neoplasm of head of pancreas (principal); C78.7 Secondary malignant neoplasm of liver and intrahepatic bile duct; R91.1 Solitary pulmonary nodule; C25.3 Malignant neoplasm of pancreatic duct | CPT/HCPCS: 74183; A9575 ==

== ENCOUNTER → 2024-06-28 14:17 | Outpatient (REF) | payer MEDICARE, OTHER, SELFPAY ==
[2024-06-28 15:53] LABS: ALT (SGPT) 34 U/L (0-50); AST (SGOT) 28 U/L (17-59); Albumin 4.3 g/dl (3.5-5.0); Alkaline Phosphatase 70 U/L (38-126); Blood Urea Nitrogen 23 mg/dl (9-20); Calcium 8.9 mg/dl (8.4-10.2); Carbon Dioxide 30 mmol/L (22-30); Chloride 100 mmol/L (98-107); Glucose 86 mg/dl (70-99); Potassium 4.9 mmol/L (3.5-5.1); Sodium 140 mmol/L (135-145); Total Bilirubin 0.8 mg/dl (0.2-1.3); eGFR > 60.00
[2024-06-28 16:06] LABS: % Basophils 0.8 % (0-2); % Eosinophils 2.8 % (0-6); % Immature Granulocytes 0.2 % (0-0.5); % Lymphocytes 39.9 % (20.5-51.1); % Neutrophils 55.3 % (42.2-75.2); Absolute Eosinophils 0.1 10^3/uL (0-0.7); Absolute Monocytes 0.1 10^3/uL (0.1-0.6); Absolute Neutrophils 2.8 10^3/uL (1.4-6.5); Hematocrit 38.6 % (39.0-52.0); Hemoglobin 13.3 g/dL (13.0-18.0); Mean Corp Hgb Conc. 34.5 g/dL (33.0-37.0); Mean Corpuscular Hgb 30.7 pg (27.0-31.0); Mean Corpuscular Volume 89.1 fL (80.0-94.0); Mean Platelet Volume 10.9 fL (7.4-10.4); Nucleated Red Blood Cells % 0 % (-); Platelet Count 219 10^3/uL (130-400); Red Blood Cell Count 4.33 10^6/uL (4.70-6.10); White Blood Cell Count 5.1 10^3/uL (4.8-10.8)
== END ==
LOC: REG 14:17
PROVIDERS: ATTENDING PHYSICIAN Internal Medicine Hematology & Oncology; FAMILY PHYSICIAN Family Medicine
DX: C64.2 Malignant neoplasm of left kidney, except renal pelvis (principal); C61 Malignant neoplasm of prostate; Q85.00 Neurofibromatosis, unspecified; R63.4 Abnormal weight loss; C25.3 Malignant neoplasm of pancreatic duct; R91.1 Solitary pulmonary nodule; C25.0 Malignant neoplasm of head of pancreas; C78.7 Secondary malignant neoplasm of liver and intrahepatic bile duct
CPT/HCPCS: 36415; 80053; 85025

== ENCOUNTER → 2024-07-05 13:14 | Outpatient (REF) | payer MEDICARE, OTHER, SELFPAY ==
[2024-07-05 14:19] LABS: Hematocrit 36.4 % (39.0-52.0); Hemoglobin 12.4 g/dL (13.0-18.0); Mean Corp Hgb Conc. 34.1 g/dL (33.0-37.0); Mean Corpuscular Volume 88.1 fL (80.0-94.0); Mean Platelet Volume 9.9 fL (7.4-10.4); Platelet Count 161 10^3/uL (130-400); Red Blood Cell Count 4.13 10^6/uL (4.70-6.10); Red Cell Dist. Width 11.8 % (11.5-14.5); White Blood Cell Count 2.8 10^3/uL (4.8-10.8)
[2024-07-05 15:09] LABS: ALT (SGPT) 35 U/L (0-50); AST (SGOT) 24 U/L (17-59); Albumin 3.9 g/dl (3.5-5.0); Alkaline Phosphatase 73 U/L (38-126); Blood Urea Nitrogen 22 mg/dl (9-20); Calcium 8.9 mg/dl (8.4-10.2); Carbon Dioxide 28 mmol/L (22-30); Chloride 100 mmol/L (98-107); Glucose 109 mg/dl (70-99); Potassium 4.8 mmol/L (3.5-5.1); Sodium 137 mmol/L (135-145); Total Bilirubin 0.6 mg/dl (0.2-1.3); Total Protein 6.4 g/dl (6.3-8.2); eGFR > 60.00
[2024-07-05 15:17] LABS: % Basophils 0.4 % (0-2); % Eosinophils 2.1 % (0-6); % Lymphocytes 55.4 % (20.5-51.1); % Monocytes 0.7 % (1.7-9.3); % Neutrophils 41.4 % (42.2-75.2); Absolute Eosinophils 0.1 10^3/uL (0-0.7); Absolute Lymphocytes 1.6 10^3/uL (1.2-3.4); Absolute Neutrophils 1.2 10^3/uL (1.4-6.5); Nucleated Red Blood Cells % 0 % (-)
== END ==
LOC: REG 13:14
PROVIDERS: ATTENDING PHYSICIAN Internal Medicine Hematology & Oncology; FAMILY PHYSICIAN Family Medicine
DX: C64.2 Malignant neoplasm of left kidney, except renal pelvis (principal); C61 Malignant neoplasm of prostate; Q85.00 Neurofibromatosis, unspecified; R63.4 Abnormal weight loss; C25.3 Malignant neoplasm of pancreatic duct; R91.1 Solitary pulmonary nodule; C25.0 Malignant neoplasm of head of pancreas; C78.7 Secondary malignant neoplasm of liver and intrahepatic bile duct
CPT/HCPCS: 36415; 80053; 85025

== ENCOUNTER → 2024-07-12 14:22 | Outpatient (REF) | payer MEDICARE, OTHER, SELFPAY ==
[2024-07-12 16:08] LABS: ALT (SGPT) 30 U/L (0-50); AST (SGOT) 23 U/L (17-59); Albumin 3.4 g/dl (3.5-5.0); Alkaline Phosphatase 84 U/L (38-126); Blood Urea Nitrogen 16 mg/dl (9-20); Calcium 8.6 mg/dl (8.4-10.2); Carbon Dioxide 29 mmol/L (22-30); Chloride 99 mmol/L (98-107); Glucose 138 mg/dl (70-99); Potassium 4.5 mmol/L (3.5-5.1); Sodium 137 mmol/L (135-145); Total Bilirubin 0.5 mg/dl (0.2-1.3); Total Protein 5.8 g/dl (6.3-8.2); eGFR > 60.00
[2024-07-12 16:28] LABS: % Basophils 0.2 % (0-2); % Eosinophils 0.4 % (0-6); % Lymphocytes 17.2 % (20.5-51.1); % Monocytes 8.9 % (1.7-9.3); % Neutrophils 68.3 % (42.2-75.2); Absolute Immature Granulocytes 0.5 10^3/uL (0-0.05); Absolute Lymphocytes 1.8 10^3/uL (1.2-3.4); Absolute Monocytes 0.9 10^3/uL (0.1-0.6); Absolute Neutrophils 7.1 10^3/uL (1.4-6.5); Hematocrit 33.7 % (39.0-52.0); Hemoglobin 11.6 g/dL (13.0-18.0); Mean Corp Hgb Conc. 34.4 g/dL (33.0-37.0); Mean Corpuscular Hgb 30.3 pg (27.0-31.0); Mean Platelet Volume 10.2 fL (7.4-10.4); Nucleated Red Blood Cells % 0 % (-); Platelet Count 155 10^3/uL (130-400); Red Blood Cell Count 3.83 10^6/uL (4.70-6.10); White Blood Cell Count 10.3 10^3/uL (4.8-10.8)
== END ==
LOC: REG 14:22
PROVIDERS: ATTENDING PHYSICIAN Internal Medicine Hematology & Oncology; FAMILY PHYSICIAN Family Medicine
DX: C64.2 Malignant neoplasm of left kidney, except renal pelvis (principal); C61 Malignant neoplasm of prostate; Q85.00 Neurofibromatosis, unspecified; R63.4 Abnormal weight loss; C25.3 Malignant neoplasm of pancreatic duct; R91.1 Solitary pulmonary nodule; C25.0 Malignant neoplasm of head of pancreas; C78.7 Secondary malignant neoplasm of liver and intrahepatic bile duct
CPT/HCPCS: 36415; 80053; 85025

== ENCOUNTER → 2024-07-19 14:33 | Outpatient (REF) | payer MEDICARE, OTHER, SELFPAY ==
[2024-07-19 15:49] LABS: Hematocrit 34.7 % (39.0-52.0); Hemoglobin 11.4 g/dL (13.0-18.0); Mean Corp Hgb Conc. 32.9 g/dL (33.0-37.0); Mean Corpuscular Hgb 30.3 pg (27.0-31.0); Mean Corpuscular Volume 92.3 fL (80.0-94.0); Mean Platelet Volume 9.9 fL (7.4-10.4); Platelet Count 377 10^3/uL (130-400); Red Blood Cell Count 3.76 10^6/uL (4.70-6.10); Red Cell Dist. Width 13.5 % (11.5-14.5); White Blood Cell Count 38.5 10^3/uL (4.8-10.8)
[2024-07-19 15:59] LABS: ALT (SGPT) 33 U/L (0-50); AST (SGOT) 24 U/L (17-59); Albumin 3.4 g/dl (3.5-5.0); Alkaline Phosphatase 170 U/L (38-126); Blood Urea Nitrogen 14 mg/dl (9-20); Calcium 8.3 mg/dl (8.4-10.2); Carbon Dioxide 25 mmol/L (22-30); Chloride 110 mmol/L (98-107); Glucose 127 mg/dl (70-99); Potassium 3.8 mmol/L (3.5-5.1); Sodium 141 mmol/L (135-145); Total Bilirubin 0.4 mg/dl (0.2-1.3); eGFR > 60.00
[2024-07-19 18:41] LABS: % Basophils 0.3 % (0-2); % Eosinophils 0.5 % (0-6); % Immature Granulocytes 8.2 % (0-0.5); % Lymphocytes 11.3 % (20.5-51.1); % Monocytes 4.6 % (1.7-9.3); % Neutrophils 75.1 % (42.2-75.2); Absolute Basophils 0.1 10^3/uL (0-0.2); Absolute Eosinophils 0.2 10^3/uL (0-0.7); Absolute Immature Granulocytes 3.2 10^3/uL (0-0.05); Absolute Lymphocytes 4.3 10^3/uL (1.2-3.4); Absolute Monocytes 1.8 10^3/uL (0.1-0.6); Nucleated Red Blood Cells % 0 % (-)
[2024-07-21 19:23] LABS: CA 19-9 1825 U/mL (<=35)
== END ==
LOC: REG 14:33
PROVIDERS: ATTENDING PHYSICIAN Internal Medicine Hematology & Oncology; FAMILY PHYSICIAN Family Medicine
DX: C64.2 Malignant neoplasm of left kidney, except renal pelvis (principal); C61 Malignant neoplasm of prostate; Q85.00 Neurofibromatosis, unspecified; R63.4 Abnormal weight loss; C25.3 Malignant neoplasm of pancreatic duct; R91.1 Solitary pulmonary nodule; C25.0 Malignant neoplasm of head of pancreas; C78.7 Secondary malignant neoplasm of liver and intrahepatic bile duct
CPT/HCPCS: 36415; 80053; 85025; 86301

== ENCOUNTER → 2024-07-26 15:39 | Outpatient (REF) | payer MEDICARE, OTHER, SELFPAY ==
[2024-07-26 16:45] LABS: % Basophils 1.2 % (0-2); % Eosinophils 0.4 % (0-6); % Immature Granulocytes 0.4 % (0-0.5); % Lymphocytes 26.2 % (20.5-51.1); % Neutrophils 69.8 % (42.2-75.2); Absolute Basophils 0.1 10^3/uL (0-0.2); Absolute Monocytes 0.2 10^3/uL (0.1-0.6); Absolute Neutrophils 5.3 10^3/uL (1.4-6.5); Hematocrit 33.2 % (39.0-52.0); Hemoglobin 11.2 g/dL (13.0-18.0); Mean Corp Hgb Conc. 33.7 g/dL (33.0-37.0); Mean Corpuscular Hgb 30.4 pg (27.0-31.0); Mean Platelet Volume 10.2 fL (7.4-10.4); Nucleated Red Blood Cells % 0 % (-); Platelet Count 448 10^3/uL (130-400); Red Blood Cell Count 3.69 10^6/uL (4.70-6.10); Red Cell Dist. Width 13.4 % (11.5-14.5); White Blood Cell Count 7.6 10^3/uL (4.8-10.8)
[2024-07-26 17:07] LABS: ALT (SGPT) 31 U/L (0-50); AST (SGOT) 24 U/L (17-59); Albumin 3.8 g/dl (3.5-5.0); Alkaline Phosphatase 112 U/L (38-126); Blood Urea Nitrogen 22 mg/dl (9-20); Calcium 8.8 mg/dl (8.4-10.2); Carbon Dioxide 27 mmol/L (22-30); Chloride 106 mmol/L (98-107); Glucose 104 mg/dl (70-99); Potassium 5.1 mmol/L (3.5-5.1); Sodium 138 mmol/L (135-145); Total Bilirubin 0.7 mg/dl (0.2-1.3); Total Protein 6.5 g/dl (6.3-8.2); eGFR > 60.00
== END ==
LOC: REG 15:39
PROVIDERS: ATTENDING PHYSICIAN Internal Medicine Hematology & Oncology; FAMILY PHYSICIAN Family Medicine
DX: C64.2 Malignant neoplasm of left kidney, except renal pelvis (principal); C61 Malignant neoplasm of prostate; Q85.00 Neurofibromatosis, unspecified; R63.4 Abnormal weight loss; C25.3 Malignant neoplasm of pancreatic duct; R91.1 Solitary pulmonary nodule; C25.0 Malignant neoplasm of head of pancreas; C78.7 Secondary malignant neoplasm of liver and intrahepatic bile duct
CPT/HCPCS: 36415; 80053; 85025

== ENCOUNTER → 2024-07-28 14:33 | Outpatient (REF) | payer MEDICARE, OTHER, SELFPAY ==
[2024-07-30 23:38] LABS: CA 19-9 735 U/mL (<=35)
== END ==
LOC: OIDL 14:33
PROVIDERS: ATTENDING PHYSICIAN Internal Medicine Hematology & Oncology
DX: C64.2 Malignant neoplasm of left kidney, except renal pelvis (principal); Q85.00 Neurofibromatosis, unspecified; R63.4 Abnormal weight loss; R91.1 Solitary pulmonary nodule; C25.0 Malignant neoplasm of head of pancreas; C78.7 Secondary malignant neoplasm of liver and intrahepatic bile duct; C25.3 Malignant neoplasm of pancreatic duct
CPT/HCPCS: 86301

== ENCOUNTER → 2024-08-02 13:18 | Outpatient (REF) | payer MEDICARE, OTHER, SELFPAY ==
[2024-08-02 14:28] LABS: Hematocrit 30.6 % (39.0-52.0); Hemoglobin 10.2 g/dL (13.0-18.0); Mean Corp Hgb Conc. 33.3 g/dL (33.0-37.0); Mean Corpuscular Hgb 30.3 pg (27.0-31.0); Mean Corpuscular Volume 90.8 fL (80.0-94.0); Mean Platelet Volume 10.7 fL (7.4-10.4); Platelet Count 246 10^3/uL (130-400); Red Blood Cell Count 3.37 10^6/uL (4.70-6.10); Red Cell Dist. Width 13.4 % (11.5-14.5); White Blood Cell Count 5.7 10^3/uL (4.8-10.8)
[2024-08-02 14:57] LABS: ALT (SGPT) 26 U/L (0-50); AST (SGOT) 20 U/L (17-59); Albumin 3.7 g/dl (3.5-5.0); Alkaline Phosphatase 83 U/L (38-126); Blood Urea Nitrogen 19 mg/dl (9-20); Calcium 8.8 mg/dl (8.4-10.2); Carbon Dioxide 25 mmol/L (22-30); Chloride 108 mmol/L (98-107); Glucose 98 mg/dl (70-99); Potassium 4.5 mmol/L (3.5-5.1); Sodium 140 mmol/L (135-145); Total Bilirubin 0.5 mg/dl (0.2-1.3); Total Protein 6.4 g/dl (6.3-8.2); eGFR > 60.00
[2024-08-02 17:27] LABS: Segmented Neutrophils 75 % (42-75)
[2024-08-02 17:28] LABS: Absolute Neutrophils -Man Diff 4.2 10^3/uL (1.4-6.5); Band Neutrophils 0 % (0-3); Lymphocytes 12 % (20-51); Platelets Checked Yes
[2024-08-02 17:29] LABS: Atypical Lymphocytes 13 %; Normal RBC Morphology Yes; Total Cells Counted 100
== END ==
LOC: REG 13:18
PROVIDERS: ATTENDING PHYSICIAN Internal Medicine Hematology & Oncology; FAMILY PHYSICIAN Family Medicine
DX: C64.2 Malignant neoplasm of left kidney, except renal pelvis (principal); C61 Malignant neoplasm of prostate; Q85.00 Neurofibromatosis, unspecified; R63.4 Abnormal weight loss; C25.3 Malignant neoplasm of pancreatic duct; R91.1 Solitary pulmonary nodule; C25.0 Malignant neoplasm of head of pancreas; C78.7 Secondary malignant neoplasm of liver and intrahepatic bile duct
CPT/HCPCS: 36415; 80053; 85025

== ENCOUNTER → 2024-08-09 15:02 | Outpatient (REF) | payer MEDICARE, OTHER, SELFPAY ==
[2024-08-09 15:55] LABS: Hematocrit 27.9 % (39.0-52.0); Hemoglobin 9.5 g/dL (13.0-18.0); Mean Corp Hgb Conc. 34.1 g/dL (33.0-37.0); Mean Corpuscular Hgb 31.3 pg (27.0-31.0); Mean Corpuscular Volume 91.8 fL (80.0-94.0); Mean Platelet Volume 10.2 fL (7.4-10.4); Platelet Count 174 10^3/uL (130-400); Red Blood Cell Count 3.04 10^6/uL (4.70-6.10); Red Cell Dist. Width 14.5 % (11.5-14.5); White Blood Cell Count 20.6 10^3/uL (4.8-10.8)
[2024-08-09 16:15] LABS: ALT (SGPT) 22 U/L (0-50); AST (SGOT) 19 U/L (17-59); Albumin 3.5 g/dl (3.5-5.0); Alkaline Phosphatase 134 U/L (38-126); Blood Urea Nitrogen 13 mg/dl (9-20); Calcium 8.5 mg/dl (8.4-10.2); Carbon Dioxide 24 mmol/L (22-30); Chloride 110 mmol/L (98-107); Glucose 99 mg/dl (70-99); Potassium 4.6 mmol/L (3.5-5.1); Sodium 140 mmol/L (135-145); Total Bilirubin 0.4 mg/dl (0.2-1.3); eGFR > 60.00
[2024-08-09 16:19] LABS: % Basophils 0.1 % (0-2); % Eosinophils 0.8 % (0-6); % Immature Granulocytes 2.3 % (0-0.5); % Lymphocytes 10.4 % (20.5-51.1); % Monocytes 4.6 % (1.7-9.3); % Neutrophils 81.8 % (42.2-75.2); Absolute Eosinophils 0.2 10^3/uL (0-0.7); Absolute Immature Granulocytes 0.5 10^3/uL (0-0.05); Absolute Lymphocytes 2.1 10^3/uL (1.2-3.4); Absolute Monocytes 0.9 10^3/uL (0.1-0.6); Absolute Neutrophils 16.8 10^3/uL (1.4-6.5); Nucleated Red Blood Cells % 0 % (-)
== END ==
LOC: REG 15:02
PROVIDERS: ATTENDING PHYSICIAN Internal Medicine Hematology & Oncology
DX: C64.2 Malignant neoplasm of left kidney, except renal pelvis (principal); C61 Malignant neoplasm of prostate; Q85.00 Neurofibromatosis, unspecified; R63.4 Abnormal weight loss; C25.3 Malignant neoplasm of pancreatic duct; R91.1 Solitary pulmonary nodule; C25.0 Malignant neoplasm of head of pancreas; C78.7 Secondary malignant neoplasm of liver and intrahepatic bile duct
CPT/HCPCS: 36415; 80053; 85025

== ENCOUNTER → 2024-08-16 14:39 | Outpatient (REF) | payer MEDICARE, OTHER, SELFPAY ==
[2024-08-16 15:47] LABS: Hematocrit 28.9 % (39.0-52.0); Hemoglobin 9.5 g/dL (13.0-18.0); Mean Corp Hgb Conc. 32.9 g/dL (33.0-37.0); Mean Corpuscular Hgb 30.2 pg (27.0-31.0); Mean Corpuscular Volume 91.7 fL (80.0-94.0); Mean Platelet Volume 9.7 fL (7.4-10.4); Platelet Count 323 10^3/uL (130-400); Red Blood Cell Count 3.15 10^6/uL (4.70-6.10); Red Cell Dist. Width 16.8 % (11.5-14.5); White Blood Cell Count 38.9 10^3/uL (4.8-10.8)
[2024-08-16 16:02] LABS: ALT (SGPT) 20 U/L (0-50); AST (SGOT) 16 U/L (17-59); Albumin 3.3 g/dl (3.5-5.0); Alkaline Phosphatase 159 U/L (38-126); Blood Urea Nitrogen 10 mg/dl (9-20); Calcium 8.2 mg/dl (8.4-10.2); Carbon Dioxide 22 mmol/L (22-30); Chloride 113 mmol/L (98-107); Glucose 118 mg/dl (70-99); Potassium 2.9 mmol/L (3.5-5.1); Sodium 143 mmol/L (135-145); Total Bilirubin 0.2 mg/dl (0.2-1.3); Total Protein 5.9 g/dl (6.3-8.2); eGFR > 60.00
[2024-08-16 16:06] LABS: % Basophils 0.2 % (0-2); % Eosinophils 0.5 % (0-6); % Immature Granulocytes 5.4 % (0-0.5); % Lymphocytes 8.6 % (20.5-51.1); % Monocytes 5.4 % (1.7-9.3); % Neutrophils 79.9 % (42.2-75.2); Absolute Basophils 0.1 10^3/uL (0-0.2); Absolute Eosinophils 0.2 10^3/uL (0-0.7); Absolute Immature Granulocytes 2.1 10^3/uL (0-0.05); Absolute Lymphocytes 3.3 10^3/uL (1.2-3.4); Absolute Monocytes 2.1 10^3/uL (0.1-0.6); Absolute Neutrophils 31.1 10^3/uL (1.4-6.5); Nucleated Red Blood Cells % 0.1 % (-)
== END ==
LOC: REG 14:39
PROVIDERS: ATTENDING PHYSICIAN Internal Medicine Hematology & Oncology; FAMILY PHYSICIAN Family Medicine
DX: C64.2 Malignant neoplasm of left kidney, except renal pelvis (principal); C61 Malignant neoplasm of prostate; Q85.00 Neurofibromatosis, unspecified; R63.4 Abnormal weight loss; C25.3 Malignant neoplasm of pancreatic duct; R91.1 Solitary pulmonary nodule; C25.0 Malignant neoplasm of head of pancreas; C78.7 Secondary malignant neoplasm of liver and intrahepatic bile duct
CPT/HCPCS: 36415; 80053; 85025

== ENCOUNTER → 2024-08-23 13:18 | Outpatient (REF) | payer MEDICARE, OTHER, SELFPAY ==
[2024-08-23 14:32] LABS: % Basophils 0.7 % (0-2); % Eosinophils 0.5 % (0-6); % Immature Granulocytes 0.9 % (0-0.5); % Monocytes 2.7 % (1.7-9.3); % Neutrophils 74.2 % (42.2-75.2); Absolute Immature Granulocytes 0.1 10^3/uL (0-0.05); Absolute Lymphocytes 1.2 10^3/uL (1.2-3.4); Absolute Monocytes 0.2 10^3/uL (0.1-0.6); Absolute Neutrophils 4.2 10^3/uL (1.4-6.5); Hematocrit 29.1 % (39.0-52.0); Hemoglobin 9.5 g/dL (13.0-18.0); Mean Corp Hgb Conc. 32.6 g/dL (33.0-37.0); Mean Corpuscular Hgb 30.1 pg (27.0-31.0); Mean Corpuscular Volume 92.1 fL (80.0-94.0); Nucleated Red Blood Cells % 0 % (-); Platelet Count 429 10^3/uL (130-400); Red Blood Cell Count 3.16 10^6/uL (4.70-6.10); Red Cell Dist. Width 16.4 % (11.5-14.5); White Blood Cell Count 5.6 10^3/uL (4.8-10.8)
[2024-08-23 15:15] LABS: ALT (SGPT) 26 U/L (0-50); AST (SGOT) 22 U/L (17-59); Albumin 3.5 g/dl (3.5-5.0); Alkaline Phosphatase 108 U/L (38-126); Blood Urea Nitrogen 16 mg/dl (9-20); Calcium 8.5 mg/dl (8.4-10.2); Carbon Dioxide 25 mmol/L (22-30); Chloride 110 mmol/L (98-107); Glucose 105 mg/dl (70-99); Potassium 4.4 mmol/L (3.5-5.1); Sodium 141 mmol/L (135-145); Total Bilirubin 0.5 mg/dl (0.2-1.3); Total Protein 6.2 g/dl (6.3-8.2); eGFR > 60.00
[2024-08-26 09:27] LABS: CA 19-9 269 U/mL (<=35)
== END ==
LOC: REG 13:18
PROVIDERS: ATTENDING PHYSICIAN Nurse Practitioner Adult Health; FAMILY PHYSICIAN Family Medicine; OTHER PHYSICIAN Internal Medicine Hematology & Oncology
DX: C64.2 Malignant neoplasm of left kidney, except renal pelvis (principal); C61 Malignant neoplasm of prostate; Q85.00 Neurofibromatosis, unspecified; R63.4 Abnormal weight loss; C25.3 Malignant neoplasm of pancreatic duct; R91.1 Solitary pulmonary nodule; C25.0 Malignant neoplasm of head of pancreas; C78.7 Secondary malignant neoplasm of liver and intrahepatic bile duct
CPT/HCPCS: 36415; 80053; 85025; 86301

== ENCOUNTER → 2024-08-30 13:26 | Outpatient (REF) | payer MEDICARE, OTHER, SELFPAY ==
[2024-08-30 14:34] LABS: Hematocrit 27.7 % (39.0-52.0); Hemoglobin 9.1 g/dL (13.0-18.0); Mean Corp Hgb Conc. 32.9 g/dL (33.0-37.0); Mean Corpuscular Hgb 30.4 pg (27.0-31.0); Mean Corpuscular Volume 92.6 fL (80.0-94.0); Mean Platelet Volume 10.5 fL (7.4-10.4); Platelet Count 216 10^3/uL (130-400); Red Blood Cell Count 2.99 10^6/uL (4.70-6.10); White Blood Cell Count 4.3 10^3/uL (4.8-10.8)
[2024-08-30 14:53] LABS: ALT (SGPT) 27 U/L (0-50); AST (SGOT) 19 U/L (17-59); Albumin 3.6 g/dl (3.5-5.0); Alkaline Phosphatase 91 U/L (38-126); Blood Urea Nitrogen 18 mg/dl (9-20); Calcium 8.5 mg/dl (8.4-10.2); Carbon Dioxide 27 mmol/L (22-30); Chloride 108 mmol/L (98-107); Glucose 105 mg/dl (70-99); Potassium 4.3 mmol/L (3.5-5.1); Sodium 139 mmol/L (135-145); Total Bilirubin 0.4 mg/dl (0.2-1.3); Total Protein 6.1 g/dl (6.3-8.2); eGFR > 60.00
[2024-08-30 15:29] LABS: % Basophils 0.7 % (0-2); % Eosinophils 1.9 % (0-6); % Immature Granulocytes 0.7 % (0-0.5); % Lymphocytes 26.8 % (20.5-51.1); % Monocytes 0.9 % (1.7-9.3); Absolute Eosinophils 0.1 10^3/uL (0-0.7); Absolute Lymphocytes 1.2 10^3/uL (1.2-3.4); Nucleated Red Blood Cells % 0 % (-)
== END ==
LOC: REG 13:26
PROVIDERS: ATTENDING PHYSICIAN Internal Medicine Hematology & Oncology; FAMILY PHYSICIAN Family Medicine
DX: C64.2 Malignant neoplasm of left kidney, except renal pelvis (principal); C61 Malignant neoplasm of prostate; Q85.00 Neurofibromatosis, unspecified; R63.4 Abnormal weight loss; C25.3 Malignant neoplasm of pancreatic duct; R91.1 Solitary pulmonary nodule; C25.0 Malignant neoplasm of head of pancreas; C78.7 Secondary malignant neoplasm of liver and intrahepatic bile duct
CPT/HCPCS: 36415; 80053; 85025

== ENCOUNTER → 2024-09-06 14:22 | Outpatient (REF) | payer MEDICARE, OTHER, SELFPAY ==
[2024-09-06 15:36] LABS: Hematocrit 27.4 % (39.0-52.0); Hemoglobin 8.9 g/dL (13.0-18.0); Mean Corp Hgb Conc. 32.5 g/dL (33.0-37.0); Mean Corpuscular Volume 93.8 fL (80.0-94.0); Platelet Count 174 10^3/uL (130-400); Red Cell Dist. Width 17.3 % (11.5-14.5)
[2024-09-06 16:12] LABS: ALT (SGPT) 27 U/L (0-50); AST (SGOT) 23 U/L (17-59); Albumin 3.4 g/dl (3.5-5.0); Alkaline Phosphatase 168 U/L (38-126); Blood Urea Nitrogen 13 mg/dl (9-20); Calcium 8.0 mg/dl (8.4-10.2); Carbon Dioxide 22 mmol/L (22-30); Chloride 110 mmol/L (98-107); Glucose 87 mg/dl (70-99); Potassium 3.7 mmol/L (3.5-5.1); Sodium 139 mmol/L (135-145); Total Protein 5.8 g/dl (6.3-8.2); eGFR > 60.00
[2024-09-06 16:14] LABS: Nucleated Red Blood Cells % 0 % (-)
== END ==
LOC: REG 14:22
PROVIDERS: ATTENDING PHYSICIAN Internal Medicine Hematology & Oncology; FAMILY PHYSICIAN Family Medicine
DX: C64.2 Malignant neoplasm of left kidney, except renal pelvis (principal); C61 Malignant neoplasm of prostate; Q85.00 Neurofibromatosis, unspecified; R63.4 Abnormal weight loss; C25.3 Malignant neoplasm of pancreatic duct; R91.1 Solitary pulmonary nodule; C25.0 Malignant neoplasm of head of pancreas; C78.7 Secondary malignant neoplasm of liver and intrahepatic bile duct
CPT/HCPCS: 36415; 80053; 85025

== ENCOUNTER → 2024-09-13 14:34 | Outpatient (REF) | payer MEDICARE, OTHER, SELFPAY ==
[2024-09-13 15:45] LABS: ALT (SGPT) 28 U/L (0-50); AST (SGOT) 23 U/L (17-59); Albumin 3.3 g/dl (3.5-5.0); Alkaline Phosphatase 174 U/L (38-126); Blood Urea Nitrogen 15 mg/dl (9-20); Calcium 8.0 mg/dl (8.4-10.2); Carbon Dioxide 22 mmol/L (22-30); Chloride 109 mmol/L (98-107); Glucose 129 mg/dl (70-99); Potassium 3.0 mmol/L (3.5-5.1); Sodium 139 mmol/L (135-145); Total Protein 5.8 g/dl (6.3-8.2); eGFR > 60.00
[2024-09-13 16:03] LABS: Hematocrit 28.7 % (39.0-52.0); Hemoglobin 9.3 g/dL (13.0-18.0); Mean Corp Hgb Conc. 32.4 g/dL (33.0-37.0); Mean Corpuscular Volume 92.9 fL (80.0-94.0); Nucleated Red Blood Cells % 0 % (-); Platelet Count 336 10^3/uL (130-400); Red Cell Dist. Width 18.4 % (11.5-14.5)
== END ==
LOC: REG 14:34
PROVIDERS: ATTENDING PHYSICIAN Internal Medicine Hematology & Oncology; FAMILY PHYSICIAN Family Medicine
DX: C64.2 Malignant neoplasm of left kidney, except renal pelvis (principal); C61 Malignant neoplasm of prostate; Q85.00 Neurofibromatosis, unspecified; R63.4 Abnormal weight loss; C25.3 Malignant neoplasm of pancreatic duct; R91.1 Solitary pulmonary nodule; C25.0 Malignant neoplasm of head of pancreas; C78.7 Secondary malignant neoplasm of liver and intrahepatic bile duct
CPT/HCPCS: 36415; 80053; 85025

== ENCOUNTER → 2024-09-20 14:44 | Outpatient (REF) | payer MEDICARE, OTHER, SELFPAY ==
[2024-09-20 16:06] LABS: Hematocrit 25.0 % (39.0-52.0); Hemoglobin 8.1 g/dL (13.0-18.0); Mean Corp Hgb Conc. 32.4 g/dL (33.0-37.0); Mean Corpuscular Volume 93.6 fL (80.0-94.0); Nucleated Red Blood Cells % 0 % (-); Platelet Count 392 10^3/uL (130-400); Red Cell Dist. Width 16.9 % (11.5-14.5)
[2024-09-20 16:08] LABS: ALT (SGPT) 26 U/L (0-50); AST (SGOT) 22 U/L (17-59); Albumin 3.0 g/dl (3.5-5.0); Alkaline Phosphatase 97 U/L (38-126); Blood Urea Nitrogen 17 mg/dl (9-20); Calcium 8.1 mg/dl (8.4-10.2); Carbon Dioxide 26 mmol/L (22-30); Chloride 108 mmol/L (98-107); Glucose 101 mg/dl (70-99); Potassium 3.8 mmol/L (3.5-5.1); Sodium 140 mmol/L (135-145); Total Protein 5.6 g/dl (6.3-8.2); eGFR > 60.00
== END ==
LOC: REG 14:44
PROVIDERS: ATTENDING PHYSICIAN Internal Medicine Hematology & Oncology; FAMILY PHYSICIAN Family Medicine
DX: C64.2 Malignant neoplasm of left kidney, except renal pelvis (principal); C61 Malignant neoplasm of prostate; Q85.00 Neurofibromatosis, unspecified; R63.4 Abnormal weight loss; C25.3 Malignant neoplasm of pancreatic duct; R91.1 Solitary pulmonary nodule; C25.0 Malignant neoplasm of head of pancreas; C78.7 Secondary malignant neoplasm of liver and intrahepatic bile duct
CPT/HCPCS: 36415; 80053; 85025

== ENCOUNTER → 2024-09-22 16:26 | Outpatient (REF) | payer MEDICARE, OTHER, SELFPAY ==
[2024-09-22 16:20] LABS: Iron 24 ug/dl (49-181)
[2024-09-22 16:30] LABS: Total Iron Binding Capacity 223 ug/dl (261-462)
[2024-09-22 17:16] LABS: Ferritin 360.0 ng/ml (17.9-464.0)
[2024-09-26 14:24] LABS: CA 19-9 177 U/mL (<=35)
== END ==
LOC: OIDL 16:26
PROVIDERS: ATTENDING PHYSICIAN Internal Medicine Hematology & Oncology
DX: C64.2 Malignant neoplasm of left kidney, except renal pelvis (principal); C61 Malignant neoplasm of prostate; Q85.00 Neurofibromatosis, unspecified; R63.4 Abnormal weight loss; C25.3 Malignant neoplasm of pancreatic duct; R91.1 Solitary pulmonary nodule; C25.0 Malignant neoplasm of head of pancreas; C78.7 Secondary malignant neoplasm of liver and intrahepatic bile duct; D63.0 Anemia in neoplastic disease
CPT/HCPCS: 82668; 82728; 83540; 83550; 86301

== ENCOUNTER → 2024-09-27 11:54 | Outpatient (REF) | payer MEDICARE, OTHER, SELFPAY ==
[2024-09-27 12:40] LABS: Hematocrit 25.7 % (39.0-52.0); Hemoglobin 8.2 g/dL (13.0-18.0); Mean Corp Hgb Conc. 31.9 g/dL (33.0-37.0); Mean Corpuscular Volume 95.2 fL (80.0-94.0); Nucleated Red Blood Cells % 0 % (-); Platelet Count 193 10^3/uL (130-400); Red Cell Dist. Width 16.1 % (11.5-14.5)
[2024-09-27 13:04] LABS: ALT (SGPT) 35 U/L (0-50); AST (SGOT) 29 U/L (17-59); Albumin 3.4 g/dl (3.5-5.0); Alkaline Phosphatase 91 U/L (38-126); Blood Urea Nitrogen 16 mg/dl (9-20); Calcium 8.4 mg/dl (8.4-10.2); Carbon Dioxide 28 mmol/L (22-30); Chloride 105 mmol/L (98-107); Glucose 95 mg/dl (70-99); Potassium 4.0 mmol/L (3.5-5.1); Sodium 137 mmol/L (135-145); Total Protein 5.9 g/dl (6.3-8.2); eGFR > 60.00
== END ==
LOC: REG 11:54
PROVIDERS: ATTENDING PHYSICIAN Internal Medicine Hematology & Oncology; FAMILY PHYSICIAN Family Medicine
DX: C64.2 Malignant neoplasm of left kidney, except renal pelvis (principal); C61 Malignant neoplasm of prostate; Q85.00 Neurofibromatosis, unspecified; R63.4 Abnormal weight loss; C25.3 Malignant neoplasm of pancreatic duct; R91.1 Solitary pulmonary nodule; C25.0 Malignant neoplasm of head of pancreas; C78.7 Secondary malignant neoplasm of liver and intrahepatic bile duct
CPT/HCPCS: 36415; 80053; 85025

== ENCOUNTER → 2024-10-04 14:42 | Outpatient (REF) | payer MEDICARE, OTHER, SELFPAY ==
[2024-10-04 16:43] LABS: ALT (SGPT) 29 U/L (0-50); AST (SGOT) 22 U/L (17-59); Albumin 3.4 g/dl (3.5-5.0); Alkaline Phosphatase 144 U/L (38-126); Blood Urea Nitrogen 11 mg/dl (9-20); Calcium 8.3 mg/dl (8.4-10.2); Carbon Dioxide 28 mmol/L (22-30); Chloride 106 mmol/L (98-107); Glucose 111 mg/dl (70-99); Potassium 3.6 mmol/L (3.5-5.1); Sodium 139 mmol/L (135-145); Total Protein 5.8 g/dl (6.3-8.2); eGFR > 60.00
[2024-10-04 17:03] LABS: Hematocrit 26.1 % (39.0-52.0); Hemoglobin 8.0 g/dL (13.0-18.0); Mean Corp Hgb Conc. 30.7 g/dL (33.0-37.0); Mean Corpuscular Volume 96.7 fL (80.0-94.0); Nucleated Red Blood Cells % 0.1 % (-); Platelet Count 189 10^3/uL (130-400); Red Cell Dist. Width 16.5 % (11.5-14.5)
== END ==
LOC: REG 14:42
PROVIDERS: ATTENDING PHYSICIAN Internal Medicine Hematology & Oncology; FAMILY PHYSICIAN Family Medicine
DX: C64.2 Malignant neoplasm of left kidney, except renal pelvis (principal); C61 Malignant neoplasm of prostate; Q85.00 Neurofibromatosis, unspecified; R63.4 Abnormal weight loss; C25.3 Malignant neoplasm of pancreatic duct; R91.1 Solitary pulmonary nodule; C25.0 Malignant neoplasm of head of pancreas; C78.7 Secondary malignant neoplasm of liver and intrahepatic bile duct
CPT/HCPCS: 36415; 80053; 85025

== ENCOUNTER → 2024-10-11 15:43 | Outpatient (REF) | payer MEDICARE, OTHER, SELFPAY ==
[2024-10-11 16:50] LABS: Hematocrit 30.9 % (39.0-52.0); Hemoglobin 9.5 g/dL (13.0-18.0); Mean Corp Hgb Conc. 30.7 g/dL (33.0-37.0); Mean Corpuscular Volume 96.9 fL (80.0-94.0); Nucleated Red Blood Cells % 0 % (-); Platelet Count 306 10^3/uL (130-400); Red Cell Dist. Width 17.7 % (11.5-14.5)
[2024-10-11 17:13] LABS: ALT (SGPT) 52 U/L (0-50); AST (SGOT) 34 U/L (17-59); Albumin 3.4 g/dl (3.5-5.0); Alkaline Phosphatase 243 U/L (38-126); Blood Urea Nitrogen 15 mg/dl (9-20); Calcium 8.0 mg/dl (8.4-10.2); Carbon Dioxide 23 mmol/L (22-30); Chloride 109 mmol/L (98-107); Glucose 90 mg/dl (70-99); Potassium 3.4 mmol/L (3.5-5.1); Sodium 140 mmol/L (135-145); Total Protein 6.0 g/dl (6.3-8.2); eGFR > 60.00
== END ==
LOC: REG 15:43
PROVIDERS: ATTENDING PHYSICIAN Internal Medicine Hematology & Oncology; FAMILY PHYSICIAN Family Medicine
DX: C64.2 Malignant neoplasm of left kidney, except renal pelvis (principal); C61 Malignant neoplasm of prostate; Q85.00 Neurofibromatosis, unspecified; R63.4 Abnormal weight loss; C25.3 Malignant neoplasm of pancreatic duct; R91.1 Solitary pulmonary nodule; C25.0 Malignant neoplasm of head of pancreas; C78.7 Secondary malignant neoplasm of liver and intrahepatic bile duct
CPT/HCPCS: 36415; 80053; 85025

== ENCOUNTER → 2024-10-18 13:20 | Outpatient (REF) | payer MEDICARE, OTHER, SELFPAY ==
[2024-10-18 14:38] LABS: Hematocrit 32.4 % (39.0-52.0); Hemoglobin 10.0 g/dL (13.0-18.0); Mean Corp Hgb Conc. 30.9 g/dL (33.0-37.0); Mean Corpuscular Volume 97.6 fL (80.0-94.0); Nucleated Red Blood Cells % 0 % (-); Platelet Count 435 10^3/uL (130-400); Red Cell Dist. Width 16.9 % (11.5-14.5)
[2024-10-18 15:00] LABS: ALT (SGPT) 42 U/L (0-50); AST (SGOT) 28 U/L (17-59); Albumin 3.8 g/dl (3.5-5.0); Alkaline Phosphatase 153 U/L (38-126); Blood Urea Nitrogen 18 mg/dl (9-20); Calcium 8.5 mg/dl (8.4-10.2); Carbon Dioxide 24 mmol/L (22-30); Chloride 107 mmol/L (98-107); Glucose 142 mg/dl (70-99); Potassium 4.9 mmol/L (3.5-5.1); Sodium 137 mmol/L (135-145); Total Protein 6.5 g/dl (6.3-8.2); eGFR > 60.00
== END ==
LOC: REG 13:20
PROVIDERS: ATTENDING PHYSICIAN Internal Medicine Hematology & Oncology; FAMILY PHYSICIAN Family Medicine
DX: C64.2 Malignant neoplasm of left kidney, except renal pelvis (principal); C61 Malignant neoplasm of prostate; Q85.00 Neurofibromatosis, unspecified; R63.4 Abnormal weight loss; C25.3 Malignant neoplasm of pancreatic duct; R91.1 Solitary pulmonary nodule; C25.0 Malignant neoplasm of head of pancreas; C78.7 Secondary malignant neoplasm of liver and intrahepatic bile duct
CPT/HCPCS: 36415; 80053; 85025

== ENCOUNTER → 2024-10-25 14:33 | Outpatient (REF) | payer MEDICARE, OTHER, SELFPAY ==
[2024-10-25 15:00] LABS: Hematocrit 31.1 % (39.0-52.0); Hemoglobin 9.7 g/dL (13.0-18.0); Mean Corp Hgb Conc. 31.2 g/dL (33.0-37.0); Mean Corpuscular Volume 94.8 fL (80.0-94.0); Nucleated Red Blood Cells % 0 % (-); Platelet Count 202 10^3/uL (130-400); Red Cell Dist. Width 16.6 % (11.5-14.5)
[2024-10-25 15:25] LABS: ALT (SGPT) 53 U/L (0-50); AST (SGOT) 31 U/L (17-59); Albumin 3.7 g/dl (3.5-5.0); Alkaline Phosphatase 132 U/L (38-126); Blood Urea Nitrogen 20 mg/dl (9-20); Calcium 8.6 mg/dl (8.4-10.2); Carbon Dioxide 24 mmol/L (22-30); Chloride 105 mmol/L (98-107); Glucose 91 mg/dl (70-99); Potassium 4.2 mmol/L (3.5-5.1); Sodium 136 mmol/L (135-145); Total Protein 6.4 g/dl (6.3-8.2); eGFR > 60.00
== END ==
LOC: REG 14:33
PROVIDERS: ATTENDING PHYSICIAN Internal Medicine Hematology & Oncology; FAMILY PHYSICIAN Family Medicine
DX: C64.2 Malignant neoplasm of left kidney, except renal pelvis (principal); C61 Malignant neoplasm of prostate; Q85.00 Neurofibromatosis, unspecified; R63.4 Abnormal weight loss; C25.3 Malignant neoplasm of pancreatic duct; R91.1 Solitary pulmonary nodule; C25.0 Malignant neoplasm of head of pancreas; C78.7 Secondary malignant neoplasm of liver and intrahepatic bile duct
CPT/HCPCS: 36415; 80053; 85025

== ENCOUNTER → 2024-10-27 16:18 | Outpatient (REF) | payer MEDICARE, OTHER, SELFPAY ==
[2024-10-29 07:18] LABS: CA 19-9 246 U/mL (<=35)
== END ==
LOC: OIDL 16:18
PROVIDERS: ATTENDING PHYSICIAN Nurse Practitioner Adult Health
DX: C64.2 Malignant neoplasm of left kidney, except renal pelvis (principal); C61 Malignant neoplasm of prostate; Q85.00 Neurofibromatosis, unspecified; R63.4 Abnormal weight loss; C25.3 Malignant neoplasm of pancreatic duct; R91.1 Solitary pulmonary nodule; C25.0 Malignant neoplasm of head of pancreas; D64.9 Anemia, unspecified; D63.0 Anemia in neoplastic disease
CPT/HCPCS: 86301

== ENCOUNTER → 2024-11-01 11:07 | Outpatient (REF) | payer MEDICARE, OTHER, SELFPAY ==
[2024-11-01 12:05] LABS: Hematocrit 30.0 % (39.0-52.0); Hemoglobin 9.2 g/dL (13.0-18.0); Mean Corp Hgb Conc. 30.7 g/dL (33.0-37.0); Mean Corpuscular Volume 96.5 fL (80.0-94.0); Platelet Count 188 10^3/uL (130-400); Red Cell Dist. Width 16.8 % (11.5-14.5)
[2024-11-01 12:28] LABS: ALT (SGPT) 35 U/L (0-50); AST (SGOT) 25 U/L (17-59); Albumin 3.5 g/dl (3.5-5.0); Alkaline Phosphatase 172 U/L (38-126); Blood Urea Nitrogen 12 mg/dl (9-20); Calcium 8.7 mg/dl (8.4-10.2); Carbon Dioxide 25 mmol/L (22-30); Chloride 108 mmol/L (98-107); Glucose 110 mg/dl (70-99); Potassium 3.6 mmol/L (3.5-5.1); Sodium 139 mmol/L (135-145); Total Protein 6.1 g/dl (6.3-8.2); eGFR > 60.00
[2024-11-01 15:59] LABS: Nucleated Red Blood Cells % 0 % (-)
== END ==
LOC: REG 11:07
PROVIDERS: ATTENDING PHYSICIAN Internal Medicine Hematology & Oncology; REFERRING PHYSICIAN Nurse Practitioner Primary Care
DX: C64.2 Malignant neoplasm of left kidney, except renal pelvis (principal); C61 Malignant neoplasm of prostate; Q85.00 Neurofibromatosis, unspecified; R63.4 Abnormal weight loss; C25.3 Malignant neoplasm of pancreatic duct; R91.1 Solitary pulmonary nodule; C25.0 Malignant neoplasm of head of pancreas; C78.7 Secondary malignant neoplasm of liver and intrahepatic bile duct; D64.9 Anemia, unspecified; D63.0 Anemia in neoplastic disease
CPT/HCPCS: 36415; 80053; 85025

== ENCOUNTER → 2024-11-03 07:24 | Outpatient (REF) | payer MEDICARE, OTHER, SELFPAY | LOC: PAVMRI 07:24 | PROVIDERS: ATTENDING PHYSICIAN Internal Medicine Hematology & Oncology; FAMILY PHYSICIAN Family Medicine | DX: C64.2 Malignant neoplasm of left kidney, except renal pelvis (principal); C61 Malignant neoplasm of prostate; Q85.00 Neurofibromatosis, unspecified; R63.4 Abnormal weight loss; C25.3 Malignant neoplasm of pancreatic duct; R91.1 Solitary pulmonary nodule; C25.0 Malignant neoplasm of head of pancreas; C78.7 Secondary malignant neoplasm of liver and intrahepatic bile duct; D64.9 Anemia, unspecified; D63.0 Anemia in neoplastic disease | CPT/HCPCS: 74183; A9575 ==

== ENCOUNTER → 2024-11-09 09:48 | Outpatient (REF) | payer MEDICARE, OTHER, SELFPAY ==
[2024-11-09 11:00] LABS: Hematocrit 36.6 % (39.0-52.0); Hemoglobin 11.1 g/dL (13.0-18.0); Mean Corp Hgb Conc. 30.3 g/dL (33.0-37.0); Mean Corpuscular Volume 94.8 fL (80.0-94.0); Platelet Count 389 10^3/uL (130-400); Red Cell Dist. Width 17.7 % (11.5-14.5)
[2024-11-09 11:29] LABS: ALT (SGPT) 30 U/L (0-50); AST (SGOT) 25 U/L (17-59); Albumin 3.5 g/dl (3.5-5.0); Alkaline Phosphatase 253 U/L (38-126); Blood Urea Nitrogen 13 mg/dl (9-20); Calcium 8.3 mg/dl (8.4-10.2); Carbon Dioxide 23 mmol/L (22-30); Chloride 110 mmol/L (98-107); Glucose 108 mg/dl (70-99); Potassium 3.5 mmol/L (3.5-5.1); Sodium 140 mmol/L (135-145); Total Protein 6.0 g/dl (6.3-8.2); eGFR 55.53
[2024-11-09 11:49] LABS: Nucleated Red Blood Cells % 0.1 % (-)
== END ==
LOC: REG 09:48
PROVIDERS: ATTENDING PHYSICIAN Internal Medicine Hematology & Oncology; FAMILY PHYSICIAN Family Medicine
DX: C64.2 Malignant neoplasm of left kidney, except renal pelvis (principal); C61 Malignant neoplasm of prostate; Q85.00 Neurofibromatosis, unspecified; R63.4 Abnormal weight loss; C25.3 Malignant neoplasm of pancreatic duct; R91.1 Solitary pulmonary nodule; C25.0 Malignant neoplasm of head of pancreas; C78.7 Secondary malignant neoplasm of liver and intrahepatic bile duct
CPT/HCPCS: 36415; 80053; 85025

== ENCOUNTER → 2024-11-15 14:10 | Outpatient (REF) | payer MEDICARE, OTHER, SELFPAY ==
[2024-11-15 15:00] LABS: Hematocrit 35.0 % (39.0-52.0); Hemoglobin 10.8 g/dL (13.0-18.0); Mean Corp Hgb Conc. 30.9 g/dL (33.0-37.0); Mean Corpuscular Volume 93.8 fL (80.0-94.0); Nucleated Red Blood Cells % 0 % (-); Platelet Count 380 10^3/uL (130-400); Red Cell Dist. Width 17.3 % (11.5-14.5)
[2024-11-15 16:15] LABS: ALT (SGPT) 37 U/L (0-50); AST (SGOT) 29 U/L (17-59); Albumin 3.5 g/dl (3.5-5.0); Alkaline Phosphatase 163 U/L (38-126); Blood Urea Nitrogen 14 mg/dl (9-20); Calcium 8.3 mg/dl (8.4-10.2); Carbon Dioxide 26 mmol/L (22-30); Chloride 107 mmol/L (98-107); Glucose 109 mg/dl (70-99); Potassium 4.2 mmol/L (3.5-5.1); Sodium 138 mmol/L (135-145); Total Protein 6.1 g/dl (6.3-8.2); eGFR > 60.00
== END ==
LOC: REG 14:10
PROVIDERS: ATTENDING PHYSICIAN Internal Medicine Hematology & Oncology; FAMILY PHYSICIAN Family Medicine
DX: C64.2 Malignant neoplasm of left kidney, except renal pelvis (principal); C61 Malignant neoplasm of prostate; Q85.00 Neurofibromatosis, unspecified; R63.4 Abnormal weight loss; C25.3 Malignant neoplasm of pancreatic duct; R91.1 Solitary pulmonary nodule; C25.0 Malignant neoplasm of head of pancreas; C78.7 Secondary malignant neoplasm of liver and intrahepatic bile duct
CPT/HCPCS: 36415; 80053; 85025

== ENCOUNTER → 2024-11-22 11:21 | Outpatient (REF) | payer MEDICARE, OTHER, SELFPAY ==
[2024-11-22 11:52] LABS: Hematocrit 32.8 % (39.0-52.0); Hemoglobin 10.2 g/dL (13.0-18.0); Mean Corp Hgb Conc. 31.1 g/dL (33.0-37.0); Mean Corpuscular Volume 93.7 fL (80.0-94.0); Nucleated Red Blood Cells % 0 % (-); Platelet Count 206 10^3/uL (130-400); Red Cell Dist. Width 17.2 % (11.5-14.5)
[2024-11-22 12:26] LABS: ALT (SGPT) 34 U/L (0-50); AST (SGOT) 28 U/L (17-59); Albumin 3.4 g/dl (3.5-5.0); Alkaline Phosphatase 125 U/L (38-126); Blood Urea Nitrogen 15 mg/dl (9-20); Calcium 8.5 mg/dl (8.4-10.2); Carbon Dioxide 28 mmol/L (22-30); Chloride 104 mmol/L (98-107); Glucose 119 mg/dl (70-99); Potassium 4.0 mmol/L (3.5-5.1); Sodium 137 mmol/L (135-145); Total Protein 6.1 g/dl (6.3-8.2); eGFR > 60.00
== END ==
LOC: REG 11:21
PROVIDERS: ATTENDING PHYSICIAN Internal Medicine Hematology & Oncology
DX: C64.2 Malignant neoplasm of left kidney, except renal pelvis (principal); C61 Malignant neoplasm of prostate; Q85.00 Neurofibromatosis, unspecified; R63.4 Abnormal weight loss; C25.3 Malignant neoplasm of pancreatic duct; R91.1 Solitary pulmonary nodule; C25.0 Malignant neoplasm of head of pancreas; D64.9 Anemia, unspecified; D63.0 Anemia in neoplastic disease
CPT/HCPCS: 80053; 85025

== ENCOUNTER → 2024-11-28 09:34 | Outpatient (REF) | payer MEDICARE, OTHER, SELFPAY ==
[2024-11-28 11:23] LABS: ALT (SGPT) 28 U/L (0-50); AST (SGOT) 22 U/L (17-59); Albumin 3.4 g/dl (3.5-5.0); Alkaline Phosphatase 150 U/L (38-126); Blood Urea Nitrogen 10 mg/dl (9-20); Calcium 8.4 mg/dl (8.4-10.2); Carbon Dioxide 25 mmol/L (22-30); Chloride 107 mmol/L (98-107); Glucose 123 mg/dl (70-99); Potassium 3.7 mmol/L (3.5-5.1); Sodium 138 mmol/L (135-145); Total Protein 6.0 g/dl (6.3-8.2); eGFR > 60.00
[2024-11-28 12:14] LABS: Hematocrit 32.8 % (39.0-52.0); Hemoglobin 10.1 g/dL (13.0-18.0); Mean Corp Hgb Conc. 30.8 g/dL (33.0-37.0); Mean Corpuscular Volume 94.0 fL (80.0-94.0); Platelet Count 202 10^3/uL (130-400); Red Cell Dist. Width 17.3 % (11.5-14.5)
[2024-11-28 13:16] LABS: Absolute Neutrophils -Man Diff 14.5 10^3/uL (1.4-6.5); Anisocytosis Slight; Normal RBC Morphology No; Platelets Checked Yes
[2024-11-28 13:17] LABS: Total Cells Counted 100
== END ==
LOC: REG 09:34
PROVIDERS: ATTENDING PHYSICIAN Internal Medicine Hematology & Oncology; FAMILY PHYSICIAN Family Medicine; OTHER PHYSICIAN Internal Medicine Gastroenterology
DX: C64.2 Malignant neoplasm of left kidney, except renal pelvis (principal); C61 Malignant neoplasm of prostate; Q85.00 Neurofibromatosis, unspecified; R63.4 Abnormal weight loss; C25.3 Malignant neoplasm of pancreatic duct; R91.1 Solitary pulmonary nodule; C25.0 Malignant neoplasm of head of pancreas; C78.7 Secondary malignant neoplasm of liver and intrahepatic bile duct; D64.9 Anemia, unspecified; D63.0 Anemia in neoplastic disease; K52.9 Noninfective gastroenteritis and colitis, unspecified
CPT/HCPCS: 36415; 80053; 82653; 85025

== ENCOUNTER → 2024-12-06 13:18 | Outpatient (REF) | payer MEDICARE, OTHER, SELFPAY ==
[2024-12-06 14:43] LABS: Hematocrit 33.1 % (39.0-52.0); Hemoglobin 10.4 g/dL (13.0-18.0); Mean Corp Hgb Conc. 31.4 g/dL (33.0-37.0); Mean Corpuscular Volume 92.7 fL (80.0-94.0); Platelet Count 350 10^3/uL (130-400); Red Cell Dist. Width 18.2 % (11.5-14.5)
[2024-12-06 15:25] LABS: Absolute Neutrophils -Man Diff 38.3 10^3/uL (1.4-6.5)
[2024-12-06 15:26] LABS: Normal RBC Morphology Yes; Platelets Checked Yes; Total Cells Counted 100
[2024-12-06 15:43] LABS: ALT (SGPT) 31 U/L (0-50); AST (SGOT) 26 U/L (17-59); Albumin 3.2 g/dl (3.5-5.0); Alkaline Phosphatase 273 U/L (38-126); Blood Urea Nitrogen 14 mg/dl (9-20); Calcium 7.9 mg/dl (8.4-10.2); Carbon Dioxide 26 mmol/L (22-30); Chloride 108 mmol/L (98-107); Glucose 96 mg/dl (70-99); Potassium 2.8 mmol/L (3.5-5.1); Sodium 140 mmol/L (135-145); Total Protein 5.8 g/dl (6.3-8.2); eGFR > 60.00
[2024-12-07 12:30] LABS: Magnesium 2.1 mg/dl (1.6-2.3)
== END ==
LOC: REG 13:18
PROVIDERS: ATTENDING PHYSICIAN Internal Medicine Hematology & Oncology; FAMILY PHYSICIAN Family Medicine
DX: C64.2 Malignant neoplasm of left kidney, except renal pelvis (principal); C61 Malignant neoplasm of prostate; Q85.00 Neurofibromatosis, unspecified; R63.4 Abnormal weight loss; C25.3 Malignant neoplasm of pancreatic duct; R91.1 Solitary pulmonary nodule; C25.0 Malignant neoplasm of head of pancreas; C78.7 Secondary malignant neoplasm of liver and intrahepatic bile duct; D64.9 Anemia, unspecified; D63.0 Anemia in neoplastic disease
CPT/HCPCS: 36415; 80053; 83735; 85025; 86301

== ENCOUNTER → 2024-12-08 16:21 | Outpatient (REF) | payer MEDICARE, OTHER, SELFPAY ==
[2024-12-08 15:51] LABS: Blood Urea Nitrogen 13 mg/dl (9-20); Calcium 8.0 mg/dl (8.4-10.2); Carbon Dioxide 27 mmol/L (22-30); Chloride 108 mmol/L (98-107); Glucose 113 mg/dl (70-99); Potassium 4.1 mmol/L (3.5-5.1); Sodium 139 mmol/L (135-145); eGFR > 60.00
== END ==
LOC: OIDL 16:21
PROVIDERS: ATTENDING PHYSICIAN Internal Medicine Hematology & Oncology
DX: C64.2 Malignant neoplasm of left kidney, except renal pelvis (principal); C61 Malignant neoplasm of prostate; Q85.00 Neurofibromatosis, unspecified; R63.4 Abnormal weight loss; C25.3 Malignant neoplasm of pancreatic duct; R91.1 Solitary pulmonary nodule; C25.0 Malignant neoplasm of head of pancreas; C78.7 Secondary malignant neoplasm of liver and intrahepatic bile duct; D64.9 Anemia, unspecified; D63.0 Anemia in neoplastic disease
CPT/HCPCS: 80048

== ENCOUNTER → 2024-12-13 12:48 | Outpatient (REF) | payer MEDICARE, OTHER, SELFPAY ==
[2024-12-13 13:44] LABS: Hematocrit 30.0 % (39.0-52.0); Hemoglobin 9.3 g/dL (13.0-18.0); Mean Corp Hgb Conc. 31.0 g/dL (33.0-37.0); Mean Corpuscular Volume 92.9 fL (80.0-94.0); Platelet Count 354 10^3/uL (130-400); Red Cell Dist. Width 18.1 % (11.5-14.5)
[2024-12-13 14:13] LABS: ALT (SGPT) 39 U/L (0-50); AST (SGOT) 35 U/L (17-59); Albumin 3.2 g/dl (3.5-5.0); Alkaline Phosphatase 202 U/L (38-126); Blood Urea Nitrogen 17 mg/dl (9-20); Calcium 7.9 mg/dl (8.4-10.2); Carbon Dioxide 30 mmol/L (22-30); Chloride 102 mmol/L (98-107); Glucose 137 mg/dl (70-99); Potassium 4.5 mmol/L (3.5-5.1); Sodium 135 mmol/L (135-145); Total Protein 5.9 g/dl (6.3-8.2); eGFR > 60.00
[2024-12-13 14:15] LABS: Nucleated Red Blood Cells % 0 % (-)
== END ==
LOC: REG 12:48
PROVIDERS: ATTENDING PHYSICIAN Internal Medicine Hematology & Oncology; FAMILY PHYSICIAN Family Medicine
DX: C64.2 Malignant neoplasm of left kidney, except renal pelvis (principal); C61 Malignant neoplasm of prostate; Q85.00 Neurofibromatosis, unspecified; R63.4 Abnormal weight loss; C25.3 Malignant neoplasm of pancreatic duct; R91.1 Solitary pulmonary nodule; C25.0 Malignant neoplasm of head of pancreas; C78.7 Secondary malignant neoplasm of liver and intrahepatic bile duct; D64.9 Anemia, unspecified; D63.0 Anemia in neoplastic disease
CPT/HCPCS: 36415; 80053; 85025

== ENCOUNTER → 2024-12-20 11:55 | Outpatient (REF) | payer MEDICARE, OTHER, SELFPAY ==
[2024-12-20 13:03] LABS: Hematocrit 30.5 % (39.0-52.0); Hemoglobin 9.2 g/dL (13.0-18.0); Mean Corp Hgb Conc. 30.2 g/dL (33.0-37.0); Mean Corpuscular Volume 91.9 fL (80.0-94.0); Nucleated Red Blood Cells % 0 % (-); Platelet Count 243 10^3/uL (130-400); Red Cell Dist. Width 17.7 % (11.5-14.5)
[2024-12-20 13:31] LABS: ALT (SGPT) 60 U/L (0-50); AST (SGOT) 42 U/L (17-59); Albumin 3.4 g/dl (3.5-5.0); Alkaline Phosphatase 218 U/L (38-126); Blood Urea Nitrogen 15 mg/dl (9-20); Calcium 8.4 mg/dl (8.4-10.2); Carbon Dioxide 30 mmol/L (22-30); Chloride 103 mmol/L (98-107); Glucose 135 mg/dl (70-99); Potassium 4.6 mmol/L (3.5-5.1); Sodium 137 mmol/L (135-145); Total Protein 6.2 g/dl (6.3-8.2); eGFR > 60.00
== END ==
LOC: REG 11:55
PROVIDERS: ATTENDING PHYSICIAN Internal Medicine Hematology & Oncology; FAMILY PHYSICIAN Family Medicine
DX: C64.2 Malignant neoplasm of left kidney, except renal pelvis (principal); C61 Malignant neoplasm of prostate; Q85.00 Neurofibromatosis, unspecified; R63.4 Abnormal weight loss; C25.3 Malignant neoplasm of pancreatic duct; R91.1 Solitary pulmonary nodule; C25.0 Malignant neoplasm of head of pancreas; C78.7 Secondary malignant neoplasm of liver and intrahepatic bile duct; D64.9 Anemia, unspecified; D63.0 Anemia in neoplastic disease
CPT/HCPCS: 36415; 80053; 85025

== ENCOUNTER → 2024-12-22 11:44 | Outpatient (REF) | payer MEDICARE, OTHER, SELFPAY ==
[2024-12-22 12:31] LABS: Total Iron Binding Capacity 254 ug/dl (261-462)
[2024-12-22 12:45] LABS: Iron < 20 ug/dl (49-181)
[2024-12-22 13:06] LABS: Ferritin 336.0 ng/ml (17.9-464.0)
== END ==
LOC: OIDL 11:44
PROVIDERS: ATTENDING PHYSICIAN Nurse Practitioner Acute Care
DX: C64.2 Malignant neoplasm of left kidney, except renal pelvis (principal); C61 Malignant neoplasm of prostate; Q85.00 Neurofibromatosis, unspecified; R63.4 Abnormal weight loss; C25.3 Malignant neoplasm of pancreatic duct; R91.1 Solitary pulmonary nodule; C25.0 Malignant neoplasm of head of pancreas; C78.7 Secondary malignant neoplasm of liver and intrahepatic bile duct; D64.9 Anemia, unspecified; D63.0 Anemia in neoplastic disease
CPT/HCPCS: 82728; 83540; 83550

== ENCOUNTER → 2024-12-27 15:58 | Outpatient (REF) | payer MEDICARE, OTHER, SELFPAY ==
[2024-12-27 16:42] LABS: Hematocrit 28.4 % (39.0-52.0); Hemoglobin 8.8 g/dL (13.0-18.0); Mean Corp Hgb Conc. 31.0 g/dL (33.0-37.0); Mean Corpuscular Volume 90.2 fL (80.0-94.0); Nucleated Red Blood Cells % 0 % (-); Platelet Count 196 10^3/uL (130-400); Red Cell Dist. Width 17.6 % (11.5-14.5)
[2024-12-27 16:57] LABS: ALT (SGPT) 51 U/L (0-50); AST (SGOT) 31 U/L (17-59); Albumin 3.4 g/dl (3.5-5.0); Alkaline Phosphatase 198 U/L (38-126); Blood Urea Nitrogen 13 mg/dl (9-20); Calcium 8.3 mg/dl (8.4-10.2); Carbon Dioxide 30 mmol/L (22-30); Chloride 101 mmol/L (98-107); Glucose 102 mg/dl (70-99); Potassium 4.7 mmol/L (3.5-5.1); Sodium 135 mmol/L (135-145); Total Protein 6.2 g/dl (6.3-8.2); eGFR > 60.00
== END ==
LOC: REG 15:58
PROVIDERS: ATTENDING PHYSICIAN Internal Medicine Hematology & Oncology; FAMILY PHYSICIAN Family Medicine
DX: C64.2 Malignant neoplasm of left kidney, except renal pelvis (principal)
CPT/HCPCS: 36415; 80053; 85025

== ENCOUNTER 2024-12-29 06:04 | Day surgery (SDC) | payer MEDICARE, OTHER, SELFPAY ==
[2024-12-29] VITALS (13 sets, daily range): BP systolic 102–123; BP diastolic 58–68; BMI 18.1
== END 2024-12-29 15:00 | disposition home or self-care (01) ==
LOC: SDS 06:04
PROVIDERS: ATTENDING PHYSICIAN Internal Medicine Gastroenterology
DX: C25.0 Malignant neoplasm of head of pancreas (principal); K31.89 Other diseases of stomach and duodenum
CPT/HCPCS: 43245; 76000; C1726; C1769

== ENCOUNTER → 2025-01-03 10:12 | Outpatient (REF) | payer MEDICARE, OTHER, SELFPAY ==
[2025-01-03 11:15] LABS: Hematocrit 32.7 % (39.0-52.0); Hemoglobin 9.8 g/dL (13.0-18.0); Mean Corp Hgb Conc. 30.0 g/dL (33.0-37.0); Mean Corpuscular Volume 91.3 fL (80.0-94.0); Nucleated Red Blood Cells % 0 % (-); Platelet Count 499 10^3/uL (130-400); Red Cell Dist. Width 18.4 % (11.5-14.5)
[2025-01-03 11:48] LABS: ALT (SGPT) 238 U/L (0-50); AST (SGOT) 230 U/L (17-59); Albumin 3.3 g/dl (3.5-5.0); Alkaline Phosphatase 645 U/L (38-126); Blood Urea Nitrogen 14 mg/dl (9-20); Calcium 8.1 mg/dl (8.4-10.2); Carbon Dioxide 27 mmol/L (22-30); Chloride 99 mmol/L (98-107); Glucose 144 mg/dl (70-99); Potassium 4.0 mmol/L (3.5-5.1); Sodium 135 mmol/L (135-145); Total Protein 6.2 g/dl (6.3-8.2); eGFR > 60.00
[2025-01-05 03:30] LABS: CA 19-9 1630 U/mL (<=35)
== END ==
LOC: REG 10:12
PROVIDERS: ATTENDING PHYSICIAN Internal Medicine Hematology & Oncology
DX: C64.2 Malignant neoplasm of left kidney, except renal pelvis (principal); C61 Malignant neoplasm of prostate; Q85.00 Neurofibromatosis, unspecified; R63.4 Abnormal weight loss; C25.3 Malignant neoplasm of pancreatic duct; R91.1 Solitary pulmonary nodule; C25.0 Malignant neoplasm of head of pancreas; C78.7 Secondary malignant neoplasm of liver and intrahepatic bile duct; D64.9 Anemia, unspecified; D63.0 Anemia in neoplastic disease
CPT/HCPCS: 36415; 80053; 85025; 86301

== ENCOUNTER 2025-01-05 10:01 | Emergency (ER) | payer MEDICARE, OTHER, SELFPAY ==
[2025-01-05 10:01] VITALS: BMI 18.8
[2025-01-05 10:09] VITALS: BP 128/60
--- NOTE | 2025-01-05 11:42 | ED.GENMED ---
History of Present Illness
<KELSEA Rodriguez - Last Filed: 01/05/25 18:53>
General
Chief Complaint: Cancer Problem
Source: patient and spouse
Exam Limitations: none
Time Seen by Provider: 01/05/25 11:08
Nursing documentation reviewed up to this point in time: agreed with
History of Present Illness
History of Present Illness:
Patient is an 79-year-old male with history of stage IV pancreatic cancer followed by [facility] here at [place] presents to the ER for evaluation. Patient was due for chemotherapy today however prior to arrival had an explosive
episode of diarrhea and vomiting. He denied any associated abdominal pain. He did not get chemo today . did give him Imodium. He has had intermittent back pain for the past 1 week. He currently denies any nausea now. reports patient
currently has a stent in place. His last MR was 6 weeks ago and his tumors shrinking on MRI however his tumor markers were rising .
On December 29 Dr. Alarcon of GI did perform a dilation in the first portion of the duodenum with a balloon dilator however the duodenoscope could not traverse duodenal deformity/stenosis despite multiple attempts, dilation changes scope and abdominal
pressure.
Past History
<KELSEA Rodriguez - Last Filed: 01/05/25 18:53>
Past History
ED Past Medical History: Arrthythmia (Afib - has watchman), Cancer (prostate, kidne) and HTN
ED Past Surgical History: Cardiac (watchman) and Other (Nephrectomy, prostatectomy)
Phy Exam
<KELSEA Rodriguez - Last Filed: 01/05/25 18:53>
General Physical Exam
General Presentation: no apparent distress
General age: appears stated age
General Skin: warm and dry
General Habitus: elderly
General Mental: alert
General Hydration: dry mucous membranes
Cardiovascular Exam
Cardiovascular Exam: regular rate/rhythm, no murmur and normal peripheral pulses
Pulmonary Exam
Pulmonary Exam: lungs clear and no respiratory distress
Gastrointestinal Exam
Gastrointestinal Exam: normal bowel sounds, non tender and soft
Neurological Exam
Neurological Exam: alert and oriented x3
Musculoskeletal Exam
Musculoskeletal Exam: full ROM
Skin Exam
Skin Exam: normal color and warm/dry
Psychiatric Exam
Psychiatric Exam: normal mood/affect
Course
<KELSEA Rodriguez - Last Filed: 01/05/25 18:53>
Orders/Labs/Results
Orders:
Orders
01/05/25 12:03
Complete Blood Count/With Diff Urgent
Comprehensive Metabolic Panel Urgent
Lipase Urgent
Urinalysis Reflex To Culture Urgent
Date Specimen was Collected: 01/05/25
Time Specimen was Collected: 11:49
Urine Microscopic Reflex Cult Urgent
Urine Culture Urgent
SHIKHA Source: U
Specimen Description:
Date Specimen was Collected: 01/05/25
Time Specimen was Collected: 11:49
01/05/25 12:38
Electrocardiogram (*1) Stat
Reason for Study: Other
Other Reason for Exam: chest pain
Cardiac Monitoring- Treatment ONCE
EKG- Treatment ONCE
0.9% Sodium Chloride 1000 ml [Nss] 1,000 ml IV BOLUS
Ondansetron Injectable [Zofran] 4 mg IV NOW STA
01/05/25 13:58
CT Abd/pelvis W Iv Cont Urgent
Comment:
Reason For Exam: n/v/d//back pain hx of pancreatic cancer
Abnormal Lab Results
01/05/25
12:03
WBC 16.8 H 10^3/uL
(4.8-10.8)
RBC 3.28 L 10^6/uL
(4.70-6.10)
Hgb 9.0 L g/dL
(13.0-18.0)
Hct 28.8 L %
(39.0-52.0)
MCHC 31.3 L g/dL
(33.0-37.0)
RDW 18.6 H %
(11.5-14.5)
Plt Count 553 H 10^3/uL
(130-400)
Abs Immat Gran (auto) 0.1 H 10^3/uL
(0-0.05)
Absolute Neuts (auto) 14.6 H 10^3/uL
(1.4-6.5)
Absolute Lymphs (auto) 0.7 L 10^3/uL
(1.2-3.4)
Absolute Monos (auto) 1.3 H 10^3/uL
(0.1-0.6)
Immature Gran % 0.7 H %
(0-0.5)
Neutrophils % 86.8 H %
(42.2-75.2)
Lymphocytes % 4.1 L %
(20.5-51.1)
Sodium 131 L mmol/L
(135-145)
Glucose 150 H mg/dl
(70-99)
Calcium 7.9 L mg/dl
(8.4-10.2)
AST 78 H U/L
(17-59)
ALT 146 H U/L
(0-50)
Alkaline Phosphatase 551 H U/L
(38-126)
Total Protein 5.7 L g/dl
(6.3-8.2)
Albumin 2.8 L g/dl
(3.5-5.0)
Lipase < 10 L U/L
(23-300)
Urine Ketones 1+ A
(Negative)
Urine Urobilinogen 2+ A
(Neg - 1+)
Leukocyte Esterase Rfl 1+ A
(Negative)
Urine RBC 3-6 A /HPF
(0-2)
Urine Bacteria (Reflex) Few A
(Negative)
Urine Albumin (Reflex) 2+ A
(Neg - Trace)
01/05/25 12:03
01/05/25 12:03
Vital Signs
Initial and Last Documented VS:
Initial Vital Signs
Temp Pulse Resp BP Pulse Ox
97.5 F 59 16 128/60 99
01/05/25 10:09 01/05/25 10:09 01/05/25 10:09 01/05/25 10:09 01/05/25 10:09
Last Documented Vital Signs
Temp Pulse Resp BP Pulse Ox
97.5 F 59 16 120/64 99
01/05/25 10:09 01/05/25 14:00 01/05/25 14:00 01/05/25 14:00 01/05/25 14:00
<Kavya Gillis, DO - Last Filed: 01/05/25 14:18>
Orders/Labs/Results
Orders:
Orders
01/05/25 12:03
Complete Blood Count/With Diff Urgent
Comprehensive Metabolic Panel Urgent
Lipase Urgent
Urinalysis Reflex To Culture Urgent
Date Specimen was Collected: 01/05/25
Time Specimen was Collected: 11:49
Urine Microscopic Reflex Cult Urgent
Urine Culture Urgent
SHIKHA Source: U
Specimen Description:
Date Specimen was Collected: 01/05/25
Time Specimen was Collected: 11:49
01/05/25 12:38
Electrocardiogram (*1) Stat
Reason for Study: Other
Other Reason for Exam: chest pain
Cardiac Monitoring- Treatment ONCE
EKG- Treatment ONCE
0.9% Sodium Chloride 1000 ml [Nss] 1,000 ml IV BOLUS
Ondansetron Injectable [Zofran] 4 mg IV NOW STA
01/05/25 13:58
CT Abd/pelvis W Iv Cont Urgent
Comment:
Reason For Exam: n/v/d//back pain hx of pancreatic cancer
Abnormal Lab Results
01/05/25
12:03
WBC 16.8 H 10^3/uL
(4.8-10.8)
RBC 3.28 L 10^6/uL
(4.70-6.10)
Hgb 9.0 L g/dL
(13.0-18.0)
Hct 28.8 L %
(39.0-52.0)
MCHC 31.3 L g/dL
(33.0-37.0)
RDW 18.6 H %
(11.5-14.5)
Plt Count 553 H 10^3/uL
(130-400)
Abs Immat Gran (auto) 0.1 H 10^3/uL
(0-0.05)
Absolute Neuts (auto) 14.6 H 10^3/uL
(1.4-6.5)
Absolute Lymphs (auto) 0.7 L 10^3/uL
(1.2-3.4)
Absolute Monos (auto) 1.3 H 10^3/uL
(0.1-0.6)
Immature Gran % 0.7 H %
(0-0.5)
Neutrophils % 86.8 H %
(42.2-75.2)
Lymphocytes % 4.1 L %
(20.5-51.1)
Sodium 131 L mmol/L
(135-145)
Glucose 150 H mg/dl
(70-99)
Calcium 7.9 L mg/dl
(8.4-10.2)
AST 78 H U/L
(17-59)
ALT 146 H U/L
(0-50)
Alkaline Phosphatase 551 H U/L
(38-126)
Total Protein 5.7 L g/dl
(6.3-8.2)
Albumin 2.8 L g/dl
(3.5-5.0)
Lipase < 10 L U/L
(23-300)
Urine Ketones 1+ A
(Negative)
Urine Urobilinogen 2+ A
(Neg - 1+)
Leukocyte Esterase Rfl 1+ A
(Negative)
Urine RBC 3-6 A /HPF
(0-2)
Urine Bacteria (Reflex) Few A
(Negative)
Urine Albumin (Reflex) 2+ A
(Neg - Trace)
01/05/25 12:03
01/05/25 12:03
Vital Signs
Initial and Last Documented VS:
Initial Vital Signs
Temp Pulse Resp BP Pulse Ox
97.5 F 59 16 128/60 99
01/05/25 10:09 01/05/25 10:09 01/05/25 10:09 01/05/25 10:09 01/05/25 10:09
Last Documented Vital Signs
Temp Pulse Resp BP Pulse Ox
97.5 F 59 16 120/64 99
01/05/25 10:09 01/05/25 14:00 01/05/25 14:00 01/05/25 14:00 01/05/25 14:00
<KELSEA Rodriguez - Last Filed: 01/05/25 18:53>
MDM/Problems Addressed
Differential Diagnosis Includes:
Gastroenteritis obstruction
MDM/Problems Addressed:
79-year-old male past medical history of pancreatic cancer due for chemotherapy today presenting for an episode of nausea vomiting diarrhea at home this morning. Patient presented awake alert no acute distress no complaints abdominal pain; he has
had intermittent lower back pain this week. He denies any fevers. He presents afebrile. No complaints of abd pain and no n/v/d here.
white count is elevated at 16.8 was also elevated similar to this 2 days ago. His hemoglobin stable 9.0 ; he has had increasing LFTs and his LFTs are elevated here. Urinalysis negative. CAT scan does show interval development progression of
pancreatic head mass currently measuring up to 4.9 cm. The metallic and plastic lower stents are in place there is pneumobilia consistent with stent patency there is interval development of hepatic metastatic disease. I did speak with GI
Faith . Pt does want to go home .he has not had any episdodes of n/v/d here . Advised to call both GI and oncology in the am and strict return precautions given
Chronic conditions affecting care:
Pancreatic cancer
<KELSEA Rodriguez - Last Filed: 01/05/25 18:53>
*Radiology
Radiology exam reviewed: radiology read reviewed
*Pulse Oximetry
SaO2: 99
Oxygen Mode of Delivery: Room air
Patient hypoxic: no
*Critical Care Note
Total Time (30-74mins, 75-104mins- exclusive of procedures): Not Applicable
Data Reviewed
Review of Other/Old Records Reveals: Radiology Studies, Operative Reports and Discharge Summary
Source: patient and family
<KELSEA Rodriguez - Last Filed: 01/05/25 18:53>
Patient Management
Discussion with other providers: Delivery Driver (GI Dr. Cuevas and Dr Hernandez Oncology )
ED Attending Note
<KELSEA Rodriguez - Last Filed: 01/05/25 18:53>
-
Portions of this chart may have been created with voice recognition software.� Occasional wrong word or��sound alike� substitutions may have occurred due to the inherent limitations of voice recognition software.
<Kavya Gillis DO - Last Filed: 01/05/25 14:18>
ED Attending Note
Patient seen and examined by attending physician: Yes
I performed the substantive portion of visit, reviewed & personally made and approve the management plan that is documented in note by myself or DEREK.: Yes
I performed a history and physical exam of patient and discussed management with resident, I reviewed resident's note and agree with documented findings and plan of care.: Yes
ED Attending Note:
79-year-old male with history of stage IV pancreatic cancer, following with [facility], presenting to the emergency department for an episode of vomiting and diarrhea. Patient reports he had an episode of 'explosive' diarrhea this
morning, followed by vomiting. Patient does have a stent in place for his pancreatic cancer, and on December 29, Dr. Alarcon from GI tried to perform dilation of the stent, difficulty. Advised to follow-up in 3 months unless any additional symptoms
develop including jaundice or pain. called the office today, noting the vomiting and the diarrhea, recommended to come to the ER. Patient was supposed to get chemotherapy today, which he was unable to get. Denies any fever. Denies any chest
pain, cough, difficult breathing. Does note that he has been having intermittent back pain for the past week.
Vital signs on arrival are normal. On exam, patient is frail in appearance, however nontoxic. Unremarkable cardiac and pulmonary exam. No significant tenderness in abdomen, no distention. Patient had labs obtained prior to my assessment which
shows increasing leukocytosis as well as slight increase in liver enzymes. Symptoms appear most consistent with possible viral gastroenteritis, however stent occlusion or malfunction is a consideration. Lower suspicion in the absence of any
significant pain or persistence of symptoms. Plan for CT abdomen pelvis and likely discussion with GI regarding further management.
Discharge Plan
Departure
Patient Disposition: Home (Routine Discharge)
Date of Disposition: 01/05/25
Time of Disposition: 18:46
Patient with high blood pressure during this ER visit?: No
Condition: Fair
Covid-19: Not Applicable
Discharge Problem:
Nausea & vomiting, Diarrhea
Instructions: Diarrhea in adults - ED (DC), Nausea and vomiting in adults - ED (DC)
Prescriptions:
No Action
cholecalciferol (vitamin D3) [Vitamin D3] 50 mcg (2,000 unit) Capsule
50 mcg PO DAILY
donepezil 5 mg Tablet
5 mg PO HS
Leqembi 100 mg/mL Solution
0 mg IV Q2W
ascorbic acid (vitamin C) [Vitamin C] 500 mg Tablet
500 mg PO DAILY
Creon
1 tab PO TID
omeprazole 20 mg Capsule,Delayed Release(Dr/Ec)
20 mg PO DAILY
sertraline 25 mg Tablet
25 mg PO DAILY
Gas-X
2 tab PO DAILY
mirtazapine
0.5 tab PO DAILY
Referrals:
Daryl Hernandez DO [Active, Hematology / Oncology]
Tylor Cuevas MD [Active, Gastroenterology]
Prince Tripp DO [Family Provider, Family Practice]
Activity Restrictions/Additional Instructions:
Increase fluid , bland diet. Please call your oncologist as well as GI tomorrow. Return however if any worsening of symptoms if increased vomiting/diarrhea, if abdominal pain, fevers or any further concerns.
Interventions
Interventions:
*Risk Screen - Suicide Last Done: 01/05/25 10:09
*General Assessment Last Done: 01/05/25 10:09
*Neglect/Abuse Screening Last Done: 01/05/25 12:10
*ED- Fall Risk Assessment Last Done: 01/05/25 12:10
*ED COVID-19 Vaccine History Last Done: 01/05/25 10:09
*ED Influenza Vaccine History Last Done: 01/05/25 10:09
Discharge Date and Time
Print Language: HAITIAN
[2025-01-05 12:00] VITALS: BP 111/59
[2025-01-05 12:36] LABS: Urine Character Clear (Clear)
[2025-01-05 12:38] LABS: Hematocrit 28.8 % (39.0-52.0); Hemoglobin 9.0 g/dL (13.0-18.0); Mean Corp Hgb Conc. 31.3 g/dL (33.0-37.0); Mean Corpuscular Volume 87.8 fL (80.0-94.0); Nucleated Red Blood Cells % 0 % (-); Platelet Count 553 10^3/uL (130-400); Red Cell Dist. Width 18.6 % (11.5-14.5)
[2025-01-05] MEDS: ZOFRAN 4 MG IV (12:44)
[2025-01-05] MEDS: NSS 1000 IV (12:44)
[2025-01-05 13:10] LABS: ALT (SGPT) 146 U/L (0-50); AST (SGOT) 78 U/L (17-59); Albumin 2.8 g/dl (3.5-5.0); Alkaline Phosphatase 551 U/L (38-126); Blood Urea Nitrogen 15 mg/dl (9-20); Calcium 7.9 mg/dl (8.4-10.2); Carbon Dioxide 26 mmol/L (22-30); Chloride 101 mmol/L (98-107); Estimated Creatinine Clearance 56 ml/min; Glucose 150 mg/dl (70-99); Lipase < 10 U/L (23-300); Potassium 3.5 mmol/L (3.5-5.1); Sodium 131 mmol/L (135-145); Total Protein 5.7 g/dl (6.3-8.2); Urine Squamous Cell >30 /LPF (Few); eGFR > 60.00
[2025-01-05 14:00] VITALS: BP 120/64
[2025-01-05 18:51] VITALS: BP 118/84
== END 2025-01-05 18:51 | disposition home or self-care (01) ==
LOC: EMR 10:01
PROVIDERS: Nurse Practitioner; EMERGENCY PHYSICIAN Student in an Organized Health Care Education/Training Program; FAMILY PHYSICIAN Family Medicine
DX: R11.2 Nausea with vomiting, unspecified (principal); R19.7 Diarrhea, unspecified; C25.0 Malignant neoplasm of head of pancreas; C78.7 Secondary malignant neoplasm of liver and intrahepatic bile duct; I48.91 Unspecified atrial fibrillation; I10 Essential (primary) hypertension; Z85.46 Personal history of malignant neoplasm of prostate; Z90.79 Acquired absence of other genital organ(s); Z85.528 Personal history of other malignant neoplasm of kidney; Z90.5 Acquired absence of kidney
CPT/HCPCS: 99284; 96374; 96361; 74177; 80053; 81003; 81015; 83690; 85025; 87086; 93005; Q9967

== ENCOUNTER → 2025-01-10 10:30 | Outpatient (REF) | payer MEDICARE, OTHER, SELFPAY ==
[2025-01-10 11:04] LABS: Hematocrit 33.0 % (39.0-52.0); Hemoglobin 9.9 g/dL (13.0-18.0); Mean Corp Hgb Conc. 30.0 g/dL (33.0-37.0); Mean Corpuscular Volume 87.8 fL (80.0-94.0); Nucleated Red Blood Cells % 0 % (-); Platelet Count 571 10^3/uL (130-400); Red Cell Dist. Width 19.1 % (11.5-14.5)
[2025-01-10 11:36] LABS: ALT (SGPT) 113 U/L (0-50); AST (SGOT) 73 U/L (17-59); Albumin 3.1 g/dl (3.5-5.0); Alkaline Phosphatase 621 U/L (38-126); Blood Urea Nitrogen 14 mg/dl (9-20); Calcium 8.2 mg/dl (8.4-10.2); Carbon Dioxide 28 mmol/L (22-30); Chloride 101 mmol/L (98-107); Glucose 126 mg/dl (70-99); Potassium 3.6 mmol/L (3.5-5.1); Sodium 135 mmol/L (135-145); Total Protein 6.3 g/dl (6.3-8.2); eGFR > 60.00
== END ==
LOC: REG 10:30
PROVIDERS: ATTENDING PHYSICIAN Internal Medicine Hematology & Oncology; FAMILY PHYSICIAN Family Medicine
DX: C64.2 Malignant neoplasm of left kidney, except renal pelvis (principal); C61 Malignant neoplasm of prostate; Q85.00 Neurofibromatosis, unspecified; R63.4 Abnormal weight loss; C25.3 Malignant neoplasm of pancreatic duct; R91.1 Solitary pulmonary nodule; C25.0 Malignant neoplasm of head of pancreas; C78.7 Secondary malignant neoplasm of liver and intrahepatic bile duct; D64.9 Anemia, unspecified; D63.0 Anemia in neoplastic disease
CPT/HCPCS: 36415; 80053; 85025

== ENCOUNTER → 2025-01-16 11:22 | Outpatient (REF) | payer MEDICARE, OTHER, SELFPAY ==
[2025-01-16 12:15] LABS: Hematocrit 34.0 % (39.0-52.0); Hemoglobin 10.6 g/dL (13.0-18.0); Mean Corp Hgb Conc. 31.2 g/dL (33.0-37.0); Mean Corpuscular Volume 88.1 fL (80.0-94.0); Platelet Count 368 10^3/uL (130-400); Red Cell Dist. Width 20.9 % (11.5-14.5)
[2025-01-16 13:17] LABS: ALT (SGPT) 119 U/L (0-50); AST (SGOT) 126 U/L (17-59); Albumin 3.0 g/dl (3.5-5.0); Alkaline Phosphatase 790 U/L (38-126); Blood Urea Nitrogen 11 mg/dl (9-20); Calcium 7.9 mg/dl (8.4-10.2); Carbon Dioxide 28 mmol/L (22-30); Chloride 102 mmol/L (98-107); Glucose 115 mg/dl (70-99); Potassium 3.4 mmol/L (3.5-5.1); Sodium 136 mmol/L (135-145); Total Protein 6.6 g/dl (6.3-8.2); eGFR > 60.00
== END ==
LOC: OIDL 11:22
PROVIDERS: ATTENDING PHYSICIAN Internal Medicine Hematology & Oncology; FAMILY PHYSICIAN Family Medicine
DX: C64.2 Malignant neoplasm of left kidney, except renal pelvis (principal); C61 Malignant neoplasm of prostate; Q85.00 Neurofibromatosis, unspecified; R63.4 Abnormal weight loss; C25.3 Malignant neoplasm of pancreatic duct; R91.1 Solitary pulmonary nodule; C25.0 Malignant neoplasm of head of pancreas; C78.7 Secondary malignant neoplasm of liver and intrahepatic bile duct; D64.9 Anemia, unspecified; D63.0 Anemia in neoplastic disease
CPT/HCPCS: 36415; 80053; 85025

== ENCOUNTER → 2025-01-21 09:20 | Outpatient (REF) | payer MEDICARE, OTHER, SELFPAY | LOC: MRI 09:20 | PROVIDERS: ATTENDING PHYSICIAN Internal Medicine Hematology & Oncology; FAMILY PHYSICIAN Family Medicine | DX: C64.2 Malignant neoplasm of left kidney, except renal pelvis (principal); C61 Malignant neoplasm of prostate; Q85.00 Neurofibromatosis, unspecified; R63.4 Abnormal weight loss; C25.3 Malignant neoplasm of pancreatic duct; R91.1 Solitary pulmonary nodule; C25.0 Malignant neoplasm of head of pancreas; C78.7 Secondary malignant neoplasm of liver and intrahepatic bile duct; D64.9 Anemia, unspecified; D63.0 Anemia in neoplastic disease | CPT/HCPCS: 74181 ==

== ENCOUNTER → 2025-01-30 11:30 | Outpatient (REF) | payer MEDICARE, OTHER, SELFPAY ==
[2025-01-30 11:47] LABS: Hematocrit 33.7 % (39.0-52.0); Hemoglobin 10.4 g/dL (13.0-18.0); Mean Corp Hgb Conc. 30.9 g/dL (33.0-37.0); Mean Corpuscular Volume 91.1 fL (80.0-94.0); Platelet Count 438 10^3/uL (130-400); Red Cell Dist. Width 22.8 % (11.5-14.5)
[2025-01-30 12:56] LABS: ALT (SGPT) 86 U/L (0-50); AST (SGOT) 66 U/L (17-59); Albumin 3.3 g/dl (3.5-5.0); Alkaline Phosphatase 972 U/L (38-126); Blood Urea Nitrogen 15 mg/dl (9-20); Calcium 8.4 mg/dl (8.4-10.2); Carbon Dioxide 29 mmol/L (22-30); Chloride 100 mmol/L (98-107); Glucose 91 mg/dl (70-99); Sodium 134 mmol/L (135-145); Total Protein 6.8 g/dl (6.3-8.2); eGFR > 60.00
[2025-01-30 13:02] LABS: Potassium 3.7 mmol/L (3.5-5.1)
[2025-02-01 22:07] LABS: CA 19-9 4912 U/mL (<=35)
== END ==
LOC: OIDL 11:30
PROVIDERS: ATTENDING PHYSICIAN Internal Medicine Hematology & Oncology; FAMILY PHYSICIAN Family Medicine
DX: C64.2 Malignant neoplasm of left kidney, except renal pelvis (principal); C61 Malignant neoplasm of prostate; Q85.00 Neurofibromatosis, unspecified; R63.4 Abnormal weight loss; C25.3 Malignant neoplasm of pancreatic duct; R91.1 Solitary pulmonary nodule; C25.0 Malignant neoplasm of head of pancreas; C78.7 Secondary malignant neoplasm of liver and intrahepatic bile duct; D64.9 Anemia, unspecified; D63.0 Anemia in neoplastic disease
CPT/HCPCS: 36415; 80053; 85025; 86301